=== PATIENT | male | born 1970 | race Caucasian/White ===

== ENCOUNTER 2018-10-12 00:52 | Emergency (ER) | payer OTHER ==
[~2018-10-12] VITALS: Ht 180.3 cm; Wt 127.9 kg
[~2018-10-12 00:52] MED LIST: ASPI-266 PO; METO-351 PO
[2018-10-12 01:23] LABS: BASOPHILS # (AUTO) 0.1 10^3/uL (0.0-0.1); BASOPHILS % (AUTO) 1 % (0-10); EOSINOPHILS # (AUTO) 0.4 10^3/uL (0.0-0.3); EOSINOPHILS % (AUTO) 4 % (0-10); HEMATOCRIT 44 % (40-54); HEMOGLOBIN 14.6 G/DL (13.3-17.7); LYMPHOCYTES # (AUTO) 2.3 X 10^3 (1.0-4.0); LYMPHOCYTES % (AUTO) 19 % (12-44); MEAN CORPUSCULAR HEMOGLOBIN 28 PG (25-34); MEAN CORPUSCULAR HGB CONC 33 G/DL (32-36); MEAN CORPUSCULAR VOLUME 85 FL (80-99); MEAN PLATELET VOLUME 9.8 FL (7.4-10.4); MONOCYTES # (AUTO) 1.1 X 10^3 (0.0-1.0); MONOCYTES % (AUTO) 9 % (0-12); NEUTROPHILS # (AUTO) 8.3 X 10^3 (1.8-7.8); NEUTROPHILS % (AUTO) 68 % (42-75); PLATELET COUNT 276 10^3/uL (130-400); RED CELL DISTRIBUTION WIDTH 14.4 % (10.0-14.5); WHITE BLOOD COUNT 12.2 10^3/uL (4.3-11.0)
[2018-10-12 01:43] LABS: ALANINE AMINOTRANSFERASE 23 U/L (0-55); ALBUMIN 4.1 GM/DL (3.2-4.5); ALKALINE PHOSPHATASE 84 U/L (40-136); BILIRUBIN,TOTAL 0.3 MG/DL (0.1-1.0); BUN/CREATININE RATIO 22; CALCIUM 9.6 MG/DL (8.5-10.1); CARBON DIOXIDE 26 MMOL/L (21-32); CHLORIDE 94 MMOL/L (98-107); CREATININE SERUM 1.43 MG/DL (0.60-1.30); GFR ESTIMATED 53; GLUCOSE 115 MG/DL (70-105); MAGNESIUM 1.9 MG/DL (1.8-2.4); POTASSIUM 3.6 MMOL/L (3.6-5.0); SODIUM 136 MMOL/L (135-145)
--- NOTE | 2018-10-12 01:56 | ED General ---
General Chief Complaint: General Problems/Pain Stated Complaint: DIZZINESS, MUSCLE CRAMPING Nursing Triage Note: Pt amb to room #6 w/o difficulty. a&ox4. C/o muscle cramping and dizziness. Reports intermittent symptoms that began 10/11/18. Reports cramping that feels like "charley horses," to legs, arms, and neck muscles. Reports to be taking 40mg lasix BID for swelling. +1 edema noted to bilat lower extremities. Nursing Sepsis Screen: No Definite Risk Source of Information: Patient Exam Limitations: No Limitations (SHEA JUNIOR MD) History of Present Illness Date Seen by Provider: Oct 12, 2018 Time Seen by Provider: 01:08 Initial Comments Here with report of muscle cramping that occurs throughout his body but mostly in the legs, arms and upper torso. Denies chest pain or breathing problems. Does admit to swelling of the lower extremities. States the swelling is been going on for some time and he did have an evaluation for that including ultrasound of his legs. That did not show any DVTs. He is currently on Lasix and spironolactone as well as potassium supplementation. Denies nausea or vomiting. Currently cramps are gone. He was concerned due to persistence and worsening. Timing/Duration: 12-24 Hours, Intermittent Severity: Moderate Modifying Factors: improves with Rest Associated Systoms: No Chest Pain, No Fever/Chills, No Nausea/Vomiting, No Shortness of Air, No Weakness (SHEA JUNIOR MD) Allergies and Home Medications Allergies Coded Allergies: No Known Drug Allergies (Unverified , 05/23/14) Home Medications Aspirin 81 Mg Tablet.dr, 81 MG PO DAILY Prescribed by: GUICHO HALEY on 05/24/14814 Metoprolol Succinate 25 Mg Tab, 25 MG PO DAILY Prescribed by: GUICHO HALEY on 05/24/14 0815 Patient Home Medication List Home Medication List Reviewed: Yes (SHEA JUNIOR MD) Review of Systems Review of Systems Constitutional: see HPI; No chills, No fever EENTM: no symptoms reported Respiratory: no symptoms reported Cardiovascular: no symptoms reported Gastrointestinal: No abdominal pain, No nausea, No vomiting Genitourinary: no symptoms reported Musculoskeletal: No back pain; muscle pain, muscle cramps; No neck pain Skin: change in color (bilateral lower extremity); No lesions Psychiatric/Neurological: No Symptoms Reported Hematologic/Lymphatic: No Symptoms Reported (SHEA JUNIOR MD) All Other Systems Reviewed Negative Unless Noted: Yes (SHEA JUNIOR MD) Past Okgorib-Uixvsk-Xwqhqh Hx Past Med/Social Hx: Reviewed Nursing Past Med/Soc Hx (SHEA JUNIOR MD) Patient Social History Alcohol Use: Denies Use Recreational Drug Use: No Smoking Status: Never a Smoker 2nd Hand Smoke Exposure: No Recent Foreign Travel: No Contact w/Someone Who Travel: No Recent Infectious Disease Expo: No Recent Hopitalizations: No (SHEA JUNIOR MD) Immunizations Up To Date Tetanus Booster (TDap): More than 5yrs (SHEA JUNIOR MD) Seasonal Allergies Seasonal Allergies: No (SHEA JUNIOR MD) Past Medical History Surgeries: Yes Appendectomy, Orthopedic Respiratory: No Cardiac: Yes Heart Attack, Hypertension Neurological: No Reproductive Disorders: No Sexually Transmitted Disease: No HIV/AIDS: No Genitourinary: No Gastrointestinal: Yes Gastroesophageal Reflux Musculoskeletal: No Endocrine: No Cancer: No Psychosocial: No Integumentary: No Blood Disorders: No Adverse Reaction/Blood Tranf: No (SHEA JUNIOR MD) Family Medical History Reviewed Nursing Family Hx (SHEA JUNIOR MD) Congenital heart disease 19 FATHER FH: cancer 19 FATHER 19 MOTHER No Pertinent Family Hx (SHEA JUNIOR MD) Physical Exam Vital Signs Vital Signs - First Documented 10/12/18 00:57 Temp 96.3 Pulse 80 Resp 17 B/P (MAP) 131/88 (102) Pulse Ox 96 O2 Delivery Room Air (MARCIA GUTIERRES MD) Vital Signs Capillary Refill : Less Than 3 Seconds (SHEA JUNIOR MD) Height, Weight, BMI Height: 5'11.00" Weight: 282lbs. 7.0oz. 127.406169wa; BMI Method:Stated General Appearance: No Apparent Distress, WD/WN HEENT: PERRL/EOMI, Pharynx Normal Neck: Non Tender, Supple Respiratory: Lungs Clear, Normal Breath Sounds Cardiovascular: Regular Rate, Rhythm, No Murmur Gastrointestinal: Non Tender, Soft Back: Normal Inspection, No CVA Tenderness, No Vertebral Tenderness Extremity: Normal Range of Motion, Non Tender, Pedal Edema (right greater than left that he states is normal 1-2+ up to the knee bilateral), Swelling Neurologic/Psychiatric: Alert, Oriented x3 Skin: Normal Color, Warm/Dry (SHEA JUNIOR MD) Progress/Results/Core Measures Suspected Sepsis Recent Fever Within 48 Hours: No Infection Criteria Present: None New/Unexplained Altered Menta: No Sepsis Screen: No Definite Risk SIRS Temperature:96.3 Pulse: 80 Respiratory Rate: 17 Laboratory Tests 10/12/18 01:15: White Blood Count 12.2H Blood Pressure 131 /88 Mean: 102 Laboratory Tests 10/12/18 01:15: Creatinine 1.43H, Platelet Count 276, Total Bilirubin 0.3 (SHEA JUNIOR MD) Results/Orders Lab Results Laboratory Tests Test 10/12/18 01:15 Range/Units White Blood Count 12.2 H 4.3-11.0 10^3/uL Red Blood Count 5.18 4.35-5.85 10^6/uL Hemoglobin 14.6 13.3-17.7 G/DL Hematocrit 44 40-54 % Mean Corpuscular Volume 85 80-99 FL Mean Corpuscular Hemoglobin 28 25-34 PG Mean Corpuscular Hemoglobin Concent 33 32-36 G/DL Red Cell Distribution Width 14.4 10.0-14.5 % Platelet Count 276 130-400 10^3/uL Mean Platelet Volume 9.8 7.4-10.4 FL Neutrophils (%) (Auto) 68 42-75 % Lymphocytes (%) (Auto) 19 12-44 % Monocytes (%) (Auto) 9 0-12 % Eosinophils (%) (Auto) 4 0-10 % Basophils (%) (Auto) 1 0-10 % Neutrophils # (Auto) 8.3 H 1.8-7.8 X 10^3 Lymphocytes # (Auto) 2.3 1.0-4.0 X 10^3 Monocytes # (Auto) 1.1 H 0.0-1.0 X 10^3 Eosinophils # (Auto) 0.4 H 0.0-0.3 10^3/uL Basophils # (Auto) 0.1 0.0-0.1 10^3/uL D-Dimer 1.20 H 0.00-0.49 UG/ML Sodium Level 136 135-145 MMOL/L Potassium Level 3.6 3.6-5.0 MMOL/L Chloride Level 94 L 98-107 MMOL/L Carbon Dioxide Level 26 21-32 MMOL/L Anion Gap 16 H 5-14 MMOL/L Blood Urea Nitrogen 32 H 7-18 MG/DL Creatinine 1.43 H 0.60-1.30 MG/DL Estimat Glomerular Filtration Rate 53 BUN/Creatinine Ratio 22 Glucose Level 115 H 70-105 MG/DL Calcium Level 9.6 8.5-10.1 MG/DL Corrected Calcium 9.5 8.5-10.1 MG/DL Magnesium Level 1.9 1.8-2.4 MG/DL Total Bilirubin 0.3 0.1-1.0 MG/DL Aspartate Amino Transf (AST/SGOT) 21 5-34 U/L Alanine Aminotransferase (ALT/SGPT) 23 0-55 U/L Alkaline Phosphatase 84 40-136 U/L Troponin I < 0.028 <0.028 NG/ML B-Type Natriuretic Peptide 10.6 <100.0 PG/ML Total Protein 9.0 H 6.4-8.2 GM/DL Albumin 4.1 3.2-4.5 GM/DL Thyroid Stimulating Hormone (TSH) 2.98 0.35-4.94 UIU/ML (MARCIA GUTIERRES MD) Medications Given in ED Current Medications Medications Dose Ordered Sig/Karen Route Start Time Stop Time Status Last Admin Dose Admin Sodium Chloride 1,000 ml @ 0 mls/hr Q0M ONCE IV 10/12/18 02:26 10/12/18 02:27 DC 10/12/18 03:10 0 MLS/HR (MARCIA GUTIERRES MD) Vital Signs/I&O 10/12/18 00:57 Temp 96.3 Pulse 80 Resp 17 B/P (MAP) 131/88 (102) Pulse Ox 96 O2 Delivery Room Air (MARCIA GUTIERRES MD) Vital Signs/I&O Capillary Refill : Less Than 3 Seconds (SHEA JUNIOR MD) Blood Pressure Mean: 102 Progress Note : Progress Note Seen and evaluated. IV, labs, chest x-ray and EKG ordered. Monitor patient. 0220: CT angiogram chest, abdomen and pelvis ordered due to elevated d-dimer. He has negative workup on his legs and he states that his primary care provider was going to do a CT scan of his abdomen and pelvis to try to determine why his legs are swollen. We will evaluate via angiogram. Normal saline 1 L bolus ordered for after. Monitor patient. 0500: CT complete and results noted. No significant pathology within the chest, abdomen or pelvis. D-dimer is elevated. He does have swelling to bilateral legs with right greater than left. He does state that he had negative ultrasound a month ago but I do believe that he needs to have ultrasound. He has elected to await ultrasound arrives this morning so we will monitor him in the emergency department. He is urinating well. He did receive 1 L normal saline that is complete. I did discuss his renal dysfunction. He does need close follow-up with his doctor which she will do after results are com plete. Care transferred to Dr. Gutierres pending ultrasound. (SHEA JUNIOR MD) Progress Note : Time: 08:49 Progress Note I assumed care from Dr. Junior at 6 a.m. The patient's ultrasound of his lower extremity was unremarkable. (MARCIA GUTIERRES MD) ECG Initial ECG Impression Date: Oct 12, 2018 Initial ECG Impression Time: 01:16 Initial ECG Rate: 62 Initial ECG Rhythm: Normal Sinus Initial ECG Impression: Normal Initial ECG Comparisson: Changed Comment Sinus rhythm with normal axis. No evidence of ST elevation WA. Change from previous which did show some mild ST elevation. Interpreted by me. Previous EKG on 05/24/14. (SHEA JUNIOR MD) Diagnostic Imaging Diagonstic Imaging: Xray Plain Films/CT/US/NM/MRI: chest Diagonstic Imaging: CT Plain Films/CT/US/NM/MRI: chest, abdomen, pelvis Comments Normal chest CTA. No pulmonary embolism. No acute findings and the arterial system of the abdomen and pelvis. No other significant findings on CT scan noted. NAME: JENNIFER LUNDBERG [facility] REC#: [id number] PT STATUS: REG ER : 1970 PHYSICIAN: SHEA JUNIOR MD ADMIT DATE: 10/12/18/ER Draft Date of Exam:10/12/18 CT ANGIO CHST/ABD/PELV W PROCEDURE: CT angiography of the chest with contrast and CT abdomen and pelvis with contrast. TECHNIQUE: Multiple contiguous axial images were obtained through the chest, abdomen and pelvis after administration of intravenous contrast. Reconstructed MIP CT angiography acquisitions of the aorta were then performed. Auto Exposure Controls were utilized during the CT exam to meet ALARA standards for radiation dose reduction. INDICATION: Dizziness and lower extremity swelling. CTA chest: There is good opacification of pulmonary arteries with no intraluminal filling defect identified. Thoracic aorta is also unremarkable in appearance. Lungs are clear. There is borderline cardiomegaly. No significant pleural or pericardial fluid is identified. There is no evidence of pathologic adenopathy in the thorax. There is mild thoracic spondylosis. IMPRESSION: No CTA evidence of pulmonary embolism or other acute abnormality the thorax. CT abdomen and pelvis: There is mild low-density throughout the liver without focal hepatic or splenic lesion. No pancreatic or adrenal gland abnormality is identified and the gallbladder has a normal appearance. There may be punctate calcification in the right kidney. Otherwise kidneys are unremarkable with normal bilateral contrast excretion. There is abundance of mesenteric fat without evidence of bowel obstruction or pathologic adenopathy in the abdomen or pelvis. Partially opacified urinary bladder is unremarkable. There is moderate osteoarthritis involving the hip joints with [id number] lumbar spondylosis. IMPRESSION: No acute abnormality is seen within the abdomen or pelvis. Dictated on workstation # [id number] Dict: 10/12/18 0552 Trans: 10/12/18 0601 [id number] Interpreted by: MIO ROLON MD Electronically signed by: Reviewed: [facility], Reviewed by Me (SHEA JUNIOR MD) Departure Impression Primary Impression: Muscle cramps Disposition: 01 HOME, SELF-CARE Condition: Improved Departure-Patient Inst. Decision time for Depature: 08:53 (MARCIA GUTIERRES MD) Referrals: SEUN RÍOS MD (PCP) Primary Care Physician NO,LOCAL PHYSICIAN (Family) Primary Care Physician Patient Instructions: Nocturnal (Nighttime) Leg Cramps Add. Discharge Instructions: Follow-up with your doctor today. Magnesium orally for muscle cramps. Elevate legs and continue with Lasix. Return if any problems or questions. All discharge instructions reviewed with patient and/or family. Voiced understanding. Copy Copies To 1: SEUN RÍOS MD, TIMOTHY D MD Oct 12, 2018 01:56 MARCIA GUTIERRES MD Oct 12, 2018 08:51
[2018-10-12] MEDS ORDERED: NS IV 1000 ML 1,000 ML IV ONE (02:26)
--- NOTE | 2018-10-12 05:00 | NUR ---
Pt resting comfortably. Respirations even and non labored. Voices no complaints or concerns @ this time. Will continue to monitor.
--- NOTE | 2018-10-12 06:01 | Diagnostic Imaging Report ---
PROCEDURE: CT angiography of the chest with contrast and CT abdomen and pelvis with contrast. TECHNIQUE: Multiple contiguous axial images were obtained through the chest, abdomen and pelvis after administration of intravenous contrast. Reconstructed MIP CT angiography acquisitions of the aorta were then performed. Auto Exposure Controls were utilized during the CT exam to meet ALARA standards for radiation dose reduction. INDICATION: Dizziness and lower extremity swelling. CTA chest: There is good opacification of pulmonary arteries with no intraluminal filling defect identified. Thoracic aorta is also unremarkable in appearance. Lungs are clear. There is borderline cardiomegaly. No significant pleural or pericardial fluid is identified. There is no evidence of pathologic adenopathy in the thorax. There is mild thoracic spondylosis. IMPRESSION: No CTA evidence of pulmonary embolism or other acute abnormality the thorax. CT abdomen and pelvis: There is mild low-density throughout the liver without focal hepatic or splenic lesion. No pancreatic or adrenal gland abnormality is identified and the gallbladder has a normal appearance. There may be punctate calcification in the right kidney. Otherwise kidneys are unremarkable with normal bilateral contrast excretion. There is abundance of mesenteric fat without evidence of bowel obstruction or pathologic adenopathy in the abdomen or pelvis. Partially opacified urinary bladder is unremarkable. 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 IMPRESSION: No acute abnormality is seen within the abdomen or pelvis. Dictated by: Dictated on workstation # [id number]
--- NOTE | 2018-10-12 07:00 | NUR ---
Report given to COSTA Leyva to assume care of pt @ this time.
--- NOTE | 2018-10-12 07:14 | Diagnostic Imaging Report ---
INDICATION: Dizziness. PA and lateral views of the chest are obtained. No previous study is available at this time for comparison. FINDINGS: Overall heart size is within normal limits. Pulmonary vascularity is at the upper limits of normal. There is no evidence of overt edema. No pleural fluid is identified. There is mild diffuse thoracic spondylosis. IMPRESSION: Borderline pulmonary venous congestion without overt edema or other acute abnormality. Dictated by: Dictated on workstation # [id number]
--- NOTE | 2018-10-12 08:44 | Diagnostic Imaging Report ---
PROCEDURE: US Venous Lower Ext Su[place]. TECHNIQUE: Multiple real-time grayscale images were obtained over the lower extremities in various projections, bilaterally. Additional duplex Doppler and color Doppler images were also obtained. Date: October 12, 2018. Indication: 48-year-old male, bilateral lower extremity swelling. Evaluation for deep venous thrombosis. Comparison: None. Findings: The right and left common femoral veins, superficial femoral veins, popliteal veins, posterior tibial veins are patent. Impression: 1. Negative for right or left lower extremity deep venous thrombosis. Dictated by: Dictated on workstation # [id number]
[2018-10-12 09:21] VITALS: BP 115/79
== END 2018-10-12 09:21 | disposition home or self-care (01) ==
LOC: EDUNIT# 00:52 → ER 00:54
DX: R25.2 Cramp and spasm (principal); I10 Essential (primary) hypertension; I25.2 Old myocardial infarction; K21.9 Gastro-esophageal reflux disease without esophagitis; Z79.82 Long term (current) use of aspirin; Z90.49 Acquired absence of other specified parts of digestive tract; Z82.49 Family history of ischemic heart disease and other diseases of the circulatory system
CPT/HCPCS: 36415; 71046; 71275; 74174; 80053; 83735; 83880; 84443; 84484; 85025; 85379; 93005; 93970; 96360; 96361

== ENCOUNTER → 2019-04-19 | Outpatient (CLI) | payer BC, OTHER | LOC: CARD 15:02 | PROVIDERS: ATTEND Internal Medicine Cardiovascular Disease | DX: I10 Essential (primary) hypertension (principal); I25.41 Coronary artery aneurysm; R06.09 Other forms of dyspnea; E66.01 Morbid (severe) obesity due to excess calories ==

== ENCOUNTER → 2020-03-29 | Outpatient (CLI) | payer OTHER ==
--- NOTE | 2020-03-29 11:44 | Diagnostic Imaging Report ---
INDICATION: Knee pain. COMPARISON: None available. TECHNIQUE: Two radiographs of the left knee dated 03/02/2020. FINDINGS: No acute fracture or dislocation. No destructive osseous process. Moderate medial joint space narrowing and mild lateral joint space narrowing. Mild tricompartmental osteophytosis. Superior and inferior patellar enthesophytes. No joint effusion. No suspicious radiopaque foreign body. IMPRESSION: No acute osseous abnormality with udur-rl-crjywgnc degenerative changes, greatest within the medial compartment. Dictated by: Dictated on workstation # [id number]
--- NOTE | 2020-03-29 11:53 | Diagnostic Imaging Report ---
INDICATION: Lower back pain. COMPARISON: None available. TECHNIQUE: Three radiographs of the lumbar spine are obtained dated March 29, 2020. FINDINGS: Five lumbar-type vertebral bodies are present. Alignment of the lumbar spine is well maintained. Minimal chronic-appearing anterior wedging of L1 is present. No evidence of a recent vertebral body compression deformity. Multilevel small anterior osteophytes are present. This is associated with a few thin anterior syndesmophytes. Advanced facet joint degenerative changes are present, particularly within the lower lumbar spine at L4/L5 and L5/S1. Minimal partial ankylosis of the bilateral sacroiliac joints is suggested. No abnormal widening of the sacroiliac joints. The pubic symphysis is intact. Significant degenerative changes of the bilateral hips, right greater than left. Mild disc space height loss at L5/S1. No severe disc space height loss. IMPRESSION: No acute fracture with scattered osseous degenerative changes, greatest within the lower lumbar spine where there is advanced facet joint degenerative changes. Suggestion of partial ankylosis of the bilateral sacroiliac joints. Given minimal thin anterior syndesmophytes within the lumbar spine, findings may relate to ankylosing spondylitis. Recommend clinical correlation and correlation with laboratory values. Dictated by: Dictated on workstation # [id number]
== END ==
LOC: RAD 09:16
PROVIDERS: ATTEND Family Medicine
DX: Z02.71 Encounter for disability determination (principal); M47.816 Spondylosis without myelopathy or radiculopathy, lumbar region; M17.12 Unilateral primary osteoarthritis, left knee
CPT/HCPCS: 72100; 73560

== ENCOUNTER → 2021-06-04 | Outpatient (CLI) | payer OTHER ==
[~2021-06-04] MED LIST changes: +LISI40TA9 PO; +NAPR-1070 PO; +POTA10TA37 PO
--- NOTE | 2021-06-04 16:32 | Diagnostic Imaging Report ---
INDICATION: Left nephrolithiasis. EXAMINATION: KUB at 3:21 PM. FINDINGS: The lung bases are clear. The bowel gas pattern is normal. There are no pathologic masses or calcifications. IMPRESSION: Unremarkable abdomen. Dictated by: Dictated on workstation # [id number]
== END ==
LOC: RAD 14:48
PROVIDERS: ATTEND Urology
DX: N20.0 Calculus of kidney (principal)
CPT/HCPCS: 74018

== ENCOUNTER → 2021-06-04 | Outpatient (CLI) | payer OTHER | END | disposition home or self-care (01) | LOC: PREOP 16:28 | PROVIDERS: ATTEND Urology | DX: Z01.818 Encounter for other preprocedural examination (principal) ==

== ENCOUNTER 2021-06-05 08:40 | Day surgery (SDC) | payer OTHER ==
[~2021-06-05] VITALS: Ht 177.8 cm; Wt 127.2 kg
[2021-06-05] VITALS (10 sets, daily range): BP systolic 123–155; BP diastolic 70–94
[~2021-06-05 08:40] MED LIST changes: -LISI40TA9 PO; -NAPR-1070 PO; -POTA10TA37 PO
[2021-06-05] MEDS ORDERED: cefTRIAXone 1 GM PRE-MIX 50 ML IV ONE (09:00)
--- NOTE | 2021-06-05 09:11 | Diagnostic Imaging Report ---
INDICATION: Pre ESWL. COMPARISON: Radiograph 06/04/2021. A 3.3 mm diameter right pelvic calcification is unchanged. This may be within the lumen of the distal right ureter proximal to the ureteral orifice. The midline urinary bladder nondisplaced. There are degenerative changes to the spine and pelvis. No other potential opaque urinary tract calculi. Some ankylosis across the SI joints chronic. IMPRESSION: 3.3 mm right hemipelvic calcification unchanged, indeterminate phlebolith versus distal ureteral stone. Dictated by: Dictated on workstation # [id number]
--- NOTE | 2021-06-05 09:37 | Progress Note-Pre Operative ---
Pre-Operative Progress Note H&P Reviewed The H&P was reviewed, patient examined and no changes noted. Date Seen by Provider: Jun 05, 2021 Time Seen by Provider: 09:37 Date H&P Reviewed: Jun 05, 2021 Time H&P Reviewed: 09:37 Pre-Operative Diagnosis: LT RENAL STONE KATIE CLIFTON MD Jun 05, 2021 09:37
--- NOTE | 2021-06-05 11:47 | Progress Note-Post Operative ---
Post-Operative Progess Note Surgeon (s)/Financial Coordinator (s) Surgeon KATIE CLIFTON MD Financial Coordinator: NONE Pre-Operative Diagnosis LT RENAL STONE Post-Operative Diagnosis SAME Procedure & Operative Findings Date of Procedure 06/05/21 Procedure Performed/Findings LT DRY RUN ESWL Anesthesia Type GENERAL Estimated Blood Loss Estimated blood loss (mL): NONE Specimens/Packing Specimens Removed NONE Packing: NONE KATIE CLIFTON MD Jun 05, 2021 11:47
--- NOTE | 2021-06-05 11:50 | Discharge Inst-Urology ---
Discharge Inst-Urology Reconcile Patient Problems Problems Reviewed?: Yes Final Diagnosis LT RENAL STONE Patient Instructions/Follow Up Plan/Assessment/Instructions Please make appointment to been seen in office in 1 week. Increase oral fluids for 48 hours and then as needed. Diet and Activity as tolerated. If questions or concerns contact your physician Or seek help at emergency department. KATIE CLIFTON MD Jun 05, 2021 11:50
[2021-06-05] MEDS ORDERED: POTA10TA37 PO (12:10)
[2021-06-05] MEDS ORDERED: NAPR-1070 PO (12:10)
[2021-06-05] MEDS ORDERED: LISI40TA9 PO (12:10)
[2021-06-05] MEDS ORDERED: proPOfol 200 MG/20 ML (DIPRIVAN) VIAL IV ONE (13:17)
[2021-06-05] MEDS ORDERED: LIDOCAINE PF 2% 5 ML (XYLOCAINE) VIAL ONE (13:17)
[2021-06-05] MEDS ORDERED: fentaNYL INJ 100 MCG/2 ML AMP ONE (13:17)
[2021-06-05] MEDS ORDERED: SEVOFLURANE (ULTANE) 15 ML INHAL SOLN ONE (13:17)
[2021-06-05] MEDS ORDERED: ONDANSETRON 4 MG/2 ML (SDV) Z0FRAN ONE (13:17)
[2021-06-05] MEDS ORDERED: MIDAZOLAM 2 MG/2 ML (VERSED) VIAL ONE (13:18)
[2021-06-05] MEDS ORDERED: FUROSEMIDE 40 MG/4 ML INJ (LASIX) ONE (13:20)
[2021-06-05] MEDS ORDERED: KETOROLAC 30 MG/ML VIAL ONE (13:21)
[2021-06-05] MEDS ORDERED: ONDANSETRON 4 MG/2 ML (SDV) Z0FRAN IVP PRN (13:45)
[2021-06-05] MEDS ORDERED: HYDROmorphone 2 MG/ML VIAL (DILAUDID) IV ONE (13:45)
--- NOTE | 2021-06-05 14:01 | Anesthesia-General Post-Op ---
General Patient Condition Mental Status/LOC: Same as Preop Cardiovascular: Satisfactory Nausea/Vomiting: Absent Respiratory: Satisfactory Pain: Controlled Complications: Absent Post Op Complications Complications None Follow Up Care/Instructions Patient Instructions None needed. Anesthesia/Patient Condition Patient Condition Patient is doing well, no complaints, stable vital signs, no apparent adverse anesthesia problems. No complications reported per nursing. [place] [facility] [place]: Yes RENEE BRUMFIELD CRNA Jun 05, 2021 14:01
--- NOTE | 2021-06-05 19:08 | OPERATIVE REPORT ---
DATE OF SERVICE: 06/05/2021 PREOPERATIVE DIAGNOSIS: Left renal stone. POSTOPERATIVE DIAGNOSIS: Left renal stone. OPERATION PERFORMED: Left dry run ESWL. SURGEON: Lee Clifton MD ANESTHESIA: General. COMPLICATIONS: None. DESCRIPTION OF PROCEDURE: Under satisfactory general anesthesia, the patient in supine position on the ESWL table, we tried to identify the left renal stone, it was different technique of using the C-arm fluoroscopy and escaping and the bowels shadowing, we were unable to do so, most probably a stone being uric acid and was not seen by KUBs. So, we discontinued further attempt. I did not order to do it under retrograde because of the size of the stone and it fragments coming down the ureter that would not be able to be visualized by x-rays either and I thought that the best way to address the problem was the percutaneous nephrolithotripsy or a retrograde flexible uretero, pyelolithotripsy, which was offered to the patient and his preoperatively, but he wanted to try dry run first and see if the stone can be seen and broken up that way. The patient tolerated the procedure and anesthesia well and was sent to recovery room in stable condition. Job ID: [id number] DocumentID: [id number] Dictated Date: 06/05/2021 13:40:36 Fx Artist Date: 06/05/2021 19:07:40 Dictated By: LEE CLIFTON MD
== END 2021-06-05 15:30 | disposition home or self-care (01) ==
LOC: SDC 08:40
PROVIDERS: ATTEND Urology
DX: N20.0 Calculus of kidney (principal); E66.01 Morbid (severe) obesity due to excess calories; Z68.41 Body mass index [BMI] 40.0-44.9, adult
CPT/HCPCS: 74018; 87081

== ENCOUNTER 2022-03-09 12:55 | Emergency (ER) | payer OTHER ==
[~2022-03-09] VITALS: Ht 182 cm; Wt 127.2 kg
[~2022-03-09 12:55] MED LIST changes: +LISI40TA9 PO; +NAPR-1070 PO; +POTA-177 PO
--- NOTE | 2022-03-09 13:30 | ED Abdominal Pain ---
General Chief Complaint: Abdominal/GI Problems Stated Complaint: KIDNEY PAIN SURGERY ON 01/10 Source of Information: Patient Exam Limitations: No Limitations History of Present Illness Date Seen by Provider: Mar 09, 2022 Time Seen by Provider: 13:25 Initial Comments Patient is a 52-year-old male with a history of uric acid kidney stones who presents to the emergency room with a chief complaint of right flank pain. Patient was seen at [facility] approximately 5 days ago, had CT scan and x- ray done. Was sent home with hydrocodone. He states he took 1 at about 11 which did not help. He has had increasing intensity of the pain over the course of the last 12 to 18 hours. He is nauseous. No fevers or chills. The pain radiates from the back into the right anterior upper abdomen. No vomiting. Last bowel movement was this morning. He was able to urinate prior to arrival. He has had previous surgical removal of the stones at the last time was in December on the left side. He tells me that he has a 7 mm stone currently on the right. He is awaiting a callback from the urologist at after [facility] clouded images to last week. Previous appendectomy. All other review of systems reviewed and negative except as stated Timing/Duration: 12 Hours, 1 Week Severity/Quality: Severe, Sharp Location: RUQ, Flank Activities at Onset: None Associated Symptoms: Nausea/Vomiting Allergies and Home Medications Allergies Coded Allergies: No Known Drug Allergies (Unverified , 05/23/14) Patient Home Medication List Home Medication List Reviewed: Yes Lisinopril (Lisinopril) 40 Mg Tablet, 40 MG PO DAILY, (Reported) Entered as Reported by: CLEMENTE CARLOS on 06/05/21 1210 Metoprolol Succinate (Toprol Xl) 25 Mg Tab, 25 MG PO DAILY Prescribed by: GUICHO HALEY on 05/24/14 0815 Naproxen Sodium (Anaprox Ds) 550 Mg Tablet, 500 MG PO DAILY, (Reported) Entered as Reported by: CLEMENTE CARLOS on 06/05/21 1210 Oxycodone HCl/Acetaminophen (Percocet 5-325 mg Tablet) 1 Each Tablet, 1 TAB PO Q6H Prescribed by: LA SLATER on 03/09/22 1459 Potassium Chloride (Potassium Chloride) 10 Meq Tab.er.prt, 10 MEQ PO DAILY, (Reported) Entered as Reported by: CLEMENTE CARLOS on 06/05/21 1210 Review of Systems Review of Systems Constitutional: see HPI EENTM: No Symptoms Reported Respiratory: No Symptoms Reported Cardiovascular: No Symptoms Reported Gastrointestinal: Abdominal Pain, Nausea Genitourinary: Pain (no testicular pain) Musculoskeletal: no symptoms reported Skin: no symptoms reported All Other Systems Reviewed Negative Unless Noted: Yes Past Apvhtne-Tnwhib-Lnzzcz Hx Immunizations Up To Date Tetanus Booster (TDap): More than 5yrs First/Initial COVID19 Vaccinat: 09/26/20 Second COVID19 Vaccination Patrick: 10/24/20 Seasonal Allergies Seasonal Allergies: No Past Medical History Surgeries: Yes Appendectomy, Orthopedic Respiratory: No Currently Using CPAP: No Currently Using BIPAP: No Cardiac: Yes Heart Attack, Hypertension Neurological: No Reproductive Disorders: No Sexually Transmitted Disease: No HIV/AIDS: No Genitourinary: No Gastrointestinal: Yes Gastroesophageal Reflux Musculoskeletal: No Endocrine: No Cancer: No Psychosocial: No Integumentary: No Blood Disorders: No Adverse Reaction/Blood Tranf: No Family Medical History Congenital heart disease 19 FATHER FH: cancer 19 FATHER 19 MOTHER No Pertinent Family Hx Physical Exam Vital Signs Vital Signs - First Documented 03/09/22 13:23 Temp 36.6 Pulse 73 Resp 22 B/P (MAP) 156/98 (117) Pulse Ox 98 O2 Delivery Room Air Capillary Refill : Height/Weight/BMI Height: 5'11.00" Weight: 282lbs. 7.0oz. 127.791502cg; 40.23 BMI Method:Stated General Appearance: WD/WN, moderate distress HEENT: PERRL/EOMI Neck: full range of motion Respiratory: lungs clear, normal breath sounds, no respiratory distress, no accessory muscle use Cardiovascular: regular rate, rhythm Gastrointestinal: soft, tenderness (mild tenderness right flank) Progress/Results/Core Measures Results/Orders Lab Results Laboratory Tests Test 03/09/22 13:30 03/09/22 13:50 Range/Units Sodium Level 138 135-145 MMOL/L Potassium Level 3.4 L 3.6-5.0 MMOL/L Chloride Level 103 98-107 MMOL/L Carbon Dioxide Level 22 21-32 MMOL/L Anion Gap 13 5-14 MMOL/L Blood Urea Nitrogen 13 7-18 MG/DL Creatinine 1.01 0.60-1.30 MG/DL Estimat Glomerular Filtration Rate 90 BUN/Creatinine Ratio 13 Glucose Level 143 H 70-105 MG/DL Calcium Level 8.9 8.5-10.1 MG/DL Urine Color YELLOW Urine Clarity CLEAR Urine pH 5.0 5-9 Urine Specific [place] >=1.030 1.016-1.022 Urine Protein 1+ H NEGATIVE Urine Glucose (UA) NEGATIVE NEGATIVE Urine Ketones TRACE H NEGATIVE Urine Nitrite NEGATIVE NEGATIVE Urine Bilirubin NEGATIVE NEGATIVE Urine Urobilinogen 0.2 < = 1.0 MG/DL Urine Leukocyte Esterase NEGATIVE NEGATIVE Urine RBC (Auto) 3+ H NEGATIVE Urine RBC 10-25 H /HPF Urine WBC NONE /HPF Urine Crystals PRESENT H /LPF Urine Uric Acid Crystals MODERATE H /LPF Urine Bacteria TRACE /HPF Urine Casts NONE /LPF Urine Mucus SMALL H /LPF Urine Culture Indicated NO My Orders Orders - LA SLATER MD Ed Iv/Invasive Line Start (03/09/22 13:32) Basic Metabolic Panel (03/09/22 13:32) Ua Culture If Indicated (03/09/22 13:32) Ns Iv 1000 Ml (Sodium Chloride 0.9%) (03/09/22 13:32) Ketorolac Injection (Toradol Injection) (03/09/22 13:45) Morphine Injection (Morphine Injection (03/09/22 13:32) Ondansetron Injection (Zofran Injectio (03/09/22 13:45) Abdomen/Kub 1view (03/09/22 14:30) Morphine Injection (Morphine Injection (03/09/22 14:30) Medications Given in ED Current Medications Medications Dose Ordered Sig/Karen Route Start Time Stop Time Status Last Admin Dose Admin Ketorolac Tromethamine 15 mg ONCE ONCE IVP 03/09/22 13:45 03/09/22 13:46 DC 03/09/22 13:42 15 MG Ondansetron HCl 8 mg ONCE ONCE IVP 03/09/22 13:45 03/09/22 13:46 DC 03/09/22 13:42 8 MG Vital Signs/I&O 03/09/22 03/09/22 03/09/22 03/09/22 13:23 13:42 13:42 14:55 Temp 36.6 36.6 36.6 36.6 Pulse 73 Resp 22 B/P (MAP) 156/98 (117) Pulse Ox 98 O2 Delivery Room Air Progress Progress Note #1: Time: 14:31 Progress Note Patient re-examined. Pain down to a "4". No longer nauseated. Furhter clarification - he states the [facility] doctor was actually able to see the stones in the right kidney. Will go ahead and do a KUB and cloud that to [facility]. I do not see utility in repeating a CT of the abdomen and pelvis as he had a CT 4/5 days ago. Progress Note #2: Time: 15:15 Progress Note Patient is ready for discharge. Thinks his pain is controlled enough Diagnostic Imaging Diagonstic Imaging: Xray Comments NAME: JENNIFER LUNDBERG MED REC#: [id number] PT STATUS: REG ER : 1970 PHYSICIAN: LA SLATER MD ADMIT DATE: 03/09/22/ER Draft Date of Exam:03/09/22 ABDOMEN/KUB 1VIEW INDICATION: Right flank pain. History of kidney stones. FINDINGS: There is no convincing evidence of a radiodense stone projecting over the expected location of the right renal shadow or course of the ureter. There is a small rounded calcification in the right pelvis that was also present on the prior examination compatible with a phlebolith. Assessment of the kidneys is limited by significant degree of colonic gas projecting over the right renal shadow. The lung bases appear clear. IMPRESSION: There is no plain film evidence of a calcification projecting over the expected location of the renal shadow or over the expected course of the ureters. The extensive gas within the colon projecting on the renal bed does however limited plain film assessment. Dictated on workstation # [id number] Dict: 03/09/22 1449 Trans: 03/09/22 1452 CV [id number] Interpreted by: JENNIFER RODRIGUEZ MD Electronically signed by: Departure Impression Primary Impression: Renal colic on right side Disposition: 01 HOME, SELF-CARE Condition: Improved Departure-Patient Inst. Decision time for Depature: 14:56 Referrals: LANCE PARR MD (PCP) Primary Care Physician Patient Instructions: Renal Colic (DC) Add. Discharge Instructions: Drink plenty of fluids to stay well-hydrated. Continue your Flomax nightly to help increase urinary flow Change from hydrocodone to percocet 5/325. You can take 1 of these with a Tylenol or ibuprofen every 6 hours as needed for pain. Please follow-up with [facility] on Friday. Return to the emergency room for any worsening pain, especially associated with fever, vomiting or other emergent concerning symptoms. Scripts Ondansetron (Ondansetron Odt) 8 Mg Tab.rapdis 8 MG SL Q8H PRN for NAUSEA/VOMITING, #20 TAB Prov: LA SLATER MD 03/09/22 Oxycodone HCl/Acetaminophen (Percocet 5-325 mg Tablet) 1 Each Tablet 1 TAB PO Q6H for PAIN-MODERATE MDD 6 TABS, #15 TAB Prov: LA SLATER MD 03/09/22 LA SLATER MD Mar 09, 2022 13:30
[2022-03-09] MEDS ORDERED: morphine INJ 10 MG/ML 1ML (SYR OR VIAL) IVP STA ×2 (13:32→14:30)
[2022-03-09] MEDS ORDERED: NS IV 1000 ML 1,000 ML IV STA (13:32)
[2022-03-09] MEDS ORDERED: KETOROLAC 30 MG/ML VIAL IVP ONE (13:45)
[2022-03-09] MEDS ORDERED: ONDANSETRON 4 MG/2 ML (SDV) Z0FRAN IVP ONE (13:45)
[2022-03-09 13:56] LABS: BILIRUBIN,URINE NEGATIVE (NEGATIVE); CLARITY,URINE CLEAR; COLOR,URINE YELLOW; GLUCOSE, URINE (UA) NEGATIVE (NEGATIVE); KETONES,URINE TRACE (NEGATIVE); LEUKOCYTE ESTERASE ,URINE NEGATIVE (NEGATIVE); NITRITE,URINE NEGATIVE (NEGATIVE); PROTEIN,URINE 1+ (NEGATIVE)
[2022-03-09 13:56] LABS: CALCIUM 8.9 MG/DL (8.5-10.1); CREATININE SERUM 1.01 MG/DL (0.60-1.30); POTASSIUM 3.4 MMOL/L (3.6-5.0)
[2022-03-09 14:07] LABS: BACTERIA,URINE TRACE /HPF; URIC ACID CRYSTALS,URINE MODERATE /LPF
--- NOTE | 2022-03-09 14:52 | Diagnostic Imaging Report ---
INDICATION: Right flank pain. History of kidney stones. FINDINGS: There is no convincing evidence of a radiodense stone projecting over the expected location of the right renal shadow or course of the ureter. There is a small rounded calcification in the right pelvis that was also present on the prior examination compatible with a phlebolith. Assessment of the kidneys is limited by significant degree of colonic gas projecting over the right renal shadow. The lung bases appear clear. IMPRESSION: There is no plain film evidence of a calcification projecting over the expected location of the renal shadow or over the expected course of the ureters. The extensive gas within the colon projecting on the renal bed does however limited plain film assessment. Dictated by: Dictated on workstation # [id number]
[2022-03-09] MEDS ORDERED: OXYC1TAB87 PO (14:58)
[2022-03-09] MEDS ORDERED: ONDA8TAB13 SL (15:16)
[2022-03-09 15:50] VITALS: BP 133/88
== END 2022-03-09 15:50 | disposition home or self-care (01) ==
LOC: EDUNIT# 12:55 → ER 12:57
DX: N23 Unspecified renal colic (principal); Z87.442 Personal history of urinary calculi
CPT/HCPCS: 36415; 74018; 80048; 81000

== ENCOUNTER 2022-05-05 08:20 | Inpatient (IN) | payer OTHER ==
[~2022-05-05] VITALS: Ht 177.8 cm; Wt 120.2 kg
[~2022-05-05 08:20] MED LIST changes: +ONDA8TAB13 SL; +OXYC1TAB87 PO
--- OUTSIDE RECORDS SUMMARY | 2022-05-05 08:31 | XMS REPORT | Clinical Summary ---
Author Author [facility] Organization [facility] Address Unknown Phone Unavailable Care Team Providers Care Yacht Master Name Role Phone Yang Ram MD PCP Unavailable Source Comments Some departments are not documenting in the electronic medical record. If you d o not see the information that you expected, contact Release of Information in [facility] [employer] Information Management department at [phone] for further assistan ce in locating additional records.[facility] Allergies No known active allergies Medications End Date Status Medication Sig Dispensed Refills Start Date Active lisinopril (ZESTRIL) 40 Take one 0 mg tablet tablet by 9 mouth daily. Active potassium chloride Take 10 mEq 0 (KLOR-CON 10) 10 mEq by mouth 0 tablet daily. Active torsemide (DEMADEX) 20 mg Take 1 tablet 0 02/28 tablet by mouth 0 daily. Active acetaminophen Take two 50 tablet 0 (ACETAMINOPHEN EXTRA tablets by 2 STRENGTH) 500 mg tablet mouth every 6 hours as needed for Pain. Max of 4,000 mg of acetaminophen in 24 hours. Active tamsulosin (FLOMAX) 0.4 Take one 90 capsule 3 mg capsule capsule by 2 mouth daily. Take 30 min after same meal. Do not cut/ crush/ chew. Active oxybutynin XL (DITROPAN Take one 15 tablet 0 XL) 10 mg tablet tablet by 2 mouth daily. Active oxyCODONE (ROXICODONE) 5 Take one 10 tablet 0 1 mg tablet tablet by 2 mouth every 4 hours as needed. 03/13/2023 Active potassium citrate Take one 270 tablet 3 03/13/20 2 (UROCIT-K 15) 15 mEq tablet by 2 tabletIndications: Kidney mouth three stone times daily. Take with food. Active Problems Problem Noted Date Nephrolithiasis 08/22/2021 ORTEGA (dyspnea on exertion) 01/31/2019 Bilateral lower extremity edema 01/31/2019 Essential hypertension 01/31/2019 Encounters Care Team Description Date Type Specialty Juan Ricardo MD Nephrolithiasis (Primary Dx) 03/20/2022 Office Visit Urology 03/20/2022 Travel Juan Ricardo MD Scheduling 03/07/2022 Telephone Urology 03/05/2022 Hospital Radiology Encounter from Last 3 Months Immunizations Name Administration Dates Next Due Flu Vaccine =>6 Months 02/01/2019 Quadrivalent PF Surgical History Surgery Date Site/Laterality Comments HX APPENDECTOMY 03/31/1989 - 03/30/1990 HX HEART CATHETERIZATION WISDOM TEETH EXTRACTION 03/31/1996 - 03/30/1997 HX KNEE SURGERY 03/31/2016 - Left 03/30/2017 COLONOSCOPY 03/31/2020 - 03/30/2021 CYSTOURETHROSCOPY 08/23/2021 Ureter/Left CYSTOURETHRO SCOPY WITH URETEROSCOPY AND PYELOSCOPY - WITH LITHOTRIPSY INCLUDING INSERTION URETERAL STENT performed by Juan Ricardo MD at [facility] [place] Medical devices from this surgery are i n the Medical Devices section. KIDNEY STONE SURGERY 01/10/2022 Left PERCUTANE OUS NEPHROSTOLITHOTOMY/ PYELOSTOLITHOTOMY - GREATER THAN 2 CM performed by Juan Ricardo MD at [facility] [place] Medical devices from this surgery are i n the Medical Devices section. NEPHROSTOMY 01/10/[address] ACEMENT NEPHROSTOMY CATHETER WITH NEPHROSTOGRAM/ URETEROGRAM/ IMAGE-EDU NCE performed by Juan Ricardo MD at [facility] [place] Medical devices from this surgery are i n the Medical Devices section. CYSTOURETHROSCOPY 01/10/2022 Left CYSTOURETHRO SCOPY WITH URETEROSCOPY AND/ OR PYELOSCOPY - WITH REMOVAL/ MANIPULATION CALCULUS performed by Juan Ricardo MD at [facility] [place] Medical devices from this surgery are i n the Medical Devices section. Medical History Medical History Date Comments Hypertension Arthritis Kidney stones Heart attack (HCC) 2012 no stents COPD (chronic obstructive pulmonary Restrictive fredy g dis disease) (HCC) TIMOTHY treated with BiPAP Slow to wake up after anesthesia Social History Date Tobacco Use Types Packs/Day Years Used Smoking Tobacco: Never Smokeless Tobacco: Never Comments Alcohol Use Standard Drinks/Week 1 x per year Yes 0 (1 standard drink = 0.6 o z pure alcohol) Sex Assigned at Date Recorded Male 07/25/2021 12:28 PM CDT Obstetrics History Last Filed Vital Signs Reading Time Taken Comments Vital Sign 131/74 03/20/2022 1:34 PM [employer]OR[employer] HEL[employer] Blood Pressure 91 03/20/2022 1:34 PM [employer] HEL[employer] Pulse 36.4 C (97.5 F) 03/20/2022 1:34 PM [employer]ORAIL HELPER Temperature - - Respiratory Rate 100% 03/20/2022 1:34 PM [employer]OR[employer] HELPER Oxygen Saturation - - Inhaled Oxygen Concentration 123.4 kg (272 lb) 03/20/2022 1:34 PM [employer]OR[employer] HEL[employer] Weight 177.8 cm (5' 10") 03/20/2022 1:34 PM [employer]ORAIL HEL[employer] Height 39.03 03/20/2022 1:34 PM [employer]ORAIL HELPER Body Mass Index Plan of Treatment Health Maintenance Due Date Last Done Comments HIV SCREENING 1986 HEPATITIS C SCREENING 1989 PHYSICAL (COMPREHENSIVE) 1989 EXAM COLORECTAL CANCER 01/29/2016 SCREENING COVID-19 VACCINE (3 - 12/19/2020 10/24/2020, Booster for Moderna 09/26/2020 series) SHINGLES RECOMBINANT 2021 VACCINE (1 of 2) INFLUENZA VACCINE (#1) 2021 02/01/2019 DEPRESSION SCREENING 03/31/2022 DTAP/TDAP VACCINES (2 - 03/19/2029 03/19/2019 Td or Tdap) Goals Goal Patient Associated Recent Progress Patient-Stat Aut hor Goal Type Problems ed? lose some weight and keep the General Yes Gayatri Newman, swelling down on my legs RN Medical Devices Device Identifier Shelf Expiration Date Model / Serial / L ot Explanted Type Area Manufactur er 05/21/2024 [id number] / NA / [id number] Stent Ureteral 6fr 26cm Pigtail Left: Ureter BOSTO N Curve Taper Tip Bladder Mark_D - SCIENTIFIC Sna UROLOGY Implanted: Qty: 1 on 08/23/2021 by Juan Ricardo MD at [facility] Explanted: Qty: 1 on 09/05/2021 by Juan Ricardo MD 10/18/2024 [id number] / N/A / [id number] Stent Ureteral 6fr 28cm Pigtail Left: Ureter BOSTO N Curve Taper Tip Bladder Malvin - Sn/A SCIENT[employer] Implanted: Qty: 1 on 01/10/2022 by UROLOGY Alex Estrada MD at [facility] Explanted: Qty: 1 on 01/16/2022 Procedures Comments Procedure Name Priority Date/Time Associated Diag nosis CT ABD/PEL EXTERNAL Routine 03/05/2022 IMAGING 12:00 AM MONORAIL HELPER from Last 3 Months Results * CT ABD/PEL EXTERNAL IMAGING (03/05/2022 12:00 AM MONORAIL HELPER) Anatomical Location / Laterality Collection Method / Volume Cinthia ection Time Received Time Specimen (Source) Narrative Scheduling, Silent - 03/21/2022 1:42 PM MONORAIL HELPER This order has been auto finalized and does not contain a result. Radiologist RADIOLOGY EXTERNAL ORDERABL ES Outpatient from Last 3 Months Insurance Type Payer Benefit Subscriber ID Effective Phone Address Plan / Dates Group [employer]VOR [employer]URRAY [id number] 2021-P [phone] [address] [place] [address] [phone] [facility] (Home) [place] [address] Advance Directives Patient Translation Director Explanation Type Date Recorded Advance 02/01/2019 Directive/DPOA Date Inactivated Comments Code Status Date Activated 01/11/2022 12:29 PM Full Code 01/10/2022 12:59 PM Provider has discussed Code Status No, discussion no t w/Patient or Family? necessary based on Dx 02/01/2019 7:06 PM Full Code 01/31/2019 5:50 PM Provider has discussed Code Status Yes w/Patient or Family? Care Teams Start Date End Date Yacht Master Relationship Specialty 01/31/19 Yang Ram MD PCP - General Family Medicine
--- OUTSIDE RECORDS SUMMARY | 2022-05-05 08:31 | XMS REPORT | Encounter Summary ---
Author Author [facility] Organization [facility] Address Unknown Phone Unavailable Care Team Providers Care Military Pilot Name Role Phone Yang Ram MD PCP Unavailable Reason for Visit * Reason Comments Kidney Stone Encounter Details Care Team Description Date Type Department Juan Ricardo MD [address] Orth[facility] [address] [place] [address] Nephrolithiasis (Primary Dx) 03/20/2022 Office Visit Urology: [facility] [address], [place] [address] Social History Date Tobacco Use Types Packs/Day Years Used Smoking Tobacco: Never Smokeless Tobacco: Never Comments Alcohol Use Standard Drinks/Week 1 x per year Yes 0 (1 standard drink = 0.6 o z pure alcohol) Sex Assigned at Date Recorded Male 07/25/2021 12:28 PM CDT Date Recorded COVID-19 Exposure Response 03/20/2022 1:23 PM INSTRUCTIONAL SUPERVISOR In the last 10 days, have you been in contact with N o / Unsure someone who was confirmed or suspected to have Coronavirus/COVID-19? documented as of this encounter Last Filed Vital Signs Reading Time Taken Comments Vital Sign 131/74 03/20/2022 1:34 PM INSTRUCTIONAL SUPERVISOR Blood Pressure 91 03/20/2022 1:34 PM INSTRUCTIONAL SUPERVISOR Pulse 36.4 C (97.5 F) 03/20/2022 1:34 PM INSTRUCTIONAL SUPERVISOR Temperature - - Respiratory Rate 100% 03/20/2022 1:34 PM INSTRUCTIONAL SUPERVISOR Oxygen Saturation - - Inhaled Oxygen Concentration 123.4 kg (272 lb) 03/20/2022 1:34 PM INSTRUCTIONAL SUPERVISOR Weight 177.8 cm (5' 10") 03/20/2022 1:34 PM INSTRUCTIONAL SUPERVISOR Height 39.03 03/20/2022 1:34 PM INSTRUCTIONAL SUPERVISOR Body Mass Index documented in this encounter Functional Status Date of Assessment Functional Status Response 01/31/2019 Does the patient have a hearing impairment: No documented as of this encounter Progress Notes * Juan Ricardo MD - 03/20/2022 1:30 PM CST ReSKU Follow-up Note Date: 03/20/2022 Subjective Shaq Guillaume was seen in the Urology faculty practice clinic at for a follow-up visit regarding their nephrolithiasis. As you know, he is a 52 y.o. m arturo with bilateral urolithiasis. These stones have been present for 1 year. He reports no symptomatic stone events since their last visit. These were associated with no symptoms. Since their last visit, the patient underwent no procedures for stones. At their last visit, the plan was for imaging. The patient was started on no new medications at their last visit. The patient reports no new stone medications were prescribed. no diet change was recommended at the patient's last visit. He did not have any new recommended diet changes from their last visit. Today patient is with symptoms.Pain on the lower back both more on the left than right side. Pt was prescribed 3 pills /day of Kcit 15 meqs The patient's past medical, surgical, medication, allergy, family, and social hi stories were reviewed and noncontributory to this illness/condition except as no jun below: The patient's past medical history is notable for: Medical History: Diagnosis Date Arthritis COPD (chronic obstructive pulmonary disease) (HCC) Restrictive lung dis Heart attack (HCC) 2012 no stents Hypertension Kidney stones TIMOTHY treated with BiPAP Slow to wake up after anesthesia The patient's past surgical history is notable for: Surgical History: Procedure Laterality Date HX APPENDECTOMY 1989 WISDOM TEETH EXTRACTION 1996 HX KNEE SURGERY Left 2017 COLONOSCOPY 2020 CYSTOURETHROSCOPY WITH URETEROSCOPY AND PYELOSCOPY - WITH LITHOTRIPSY INCLUD ING INSERTION URETERAL STENT Left 08/23/2021 Performed by Juan Ricardo MD at [facility] OR PERCUTANEOUS NEPHROSTOLITHOTOMY/ PYELOSTOLITHOTOMY - GREATER THAN 2 CM Left 01/10/2022 Performed by Juan Ricardo MD at [facility] OR PERCUTANEOUS PLACEMENT NEPHROSTOMY CATHETER WITH NEPHROSTOGRAM/ URETEROGRAM/ IMAGE-GUIDANCE Left 01/10/2022 Performed by Juan Ricardo MD at [facility] OR CYSTOURETHROSCOPY WITH URETEROSCOPY AND/ OR PYELOSCOPY - WITH REMOVAL/ MANIP ULATION CALCULUS Left 01/10/2022 Performed by Juan Ricardo MD at [facility] OR HX HEART CATHETERIZATION The patient's past family history is notable for: History reviewed. No pertinent family history. The patient's past social history is notable for: Social History Socioeconomic History Marital status: Tobacco Use Smoking status: Never Smokeless tobacco: Never Vaping Use Vaping Use: Never used Substance and Sexual Activity Alcohol use: Yes Comment: 1 x per year Drug use: Never Sexual activity: Yes Partners: Female Complete review of systems was performed and reviewed today. It is notable for: Review of Systems Constitutional: Negative for fever, chills, weight loss and malaise/fatigue. HENT: Negative for hearing loss, neck pain and tinnitus. Eyes: Negative for blurred vision, double vision and photophobia. Respiratory: Negative for cough, sputum production and wheezing. Cardiovascular: Negative for chest pain and palpitations. Gastrointestinal: Negative for heartburn, nausea, vomiting, abdominal pain, diar shin and constipation. Genitourinary: Negative for dysuria, urgency and frequency. Musculoskeletal: Negative for back pain and joint pain. Skin: Negative for itching and rash. Neurological: Negative for dizziness, tingling, focal weakness and headaches. Endo/Heme/Allergies: Does not bruise/bleed easily. Psychiatric/Behavioral: Negative for depression. The patient is not nervous/anxi ous. The patient is currently taking the following medications: Current Outpatient Medications Medication Sig Dispense Refill acetaminophen (ACETAMINOPHEN EXTRA STRENGTH) 500 mg tablet Take two tablets by mouth every 6 hours as needed for Pain. Max of 4,000 mg of acetaminophen in 2 4 hours. 50 tablet 0 lisinopril (ZESTRIL) 40 mg tablet Take one tablet by mouth daily. oxybutynin XL (DITROPAN XL) 10 mg tablet Take one tablet by mouth daily. 15 tablet 0 oxyCODONE (ROXICODONE) 5 mg tablet Take one tablet by mouth every 4 hours as needed. 10 tablet 0 potassium chloride (KLOR-CON 10) 10 mEq tablet Take 10 mEq by mouth daily. potassium citrate (UROCIT-K 15) 15 mEq tablet Take one tablet by mouth three times daily. Take with food. 270 tablet 3 tamsulosin (FLOMAX) 0.4 mg capsule Take one capsule by mouth daily. Take 30 min after same meal. Do not cut/ crush/ chew. 90 capsule 3 torsemide (DEMADEX) 20 mg tablet Take 1 tablet by mouth daily. No current facility-administered medications for this visit. The patient is allergic to: No Known Allergies Objective During the physical examination today, the patients vital signs were BP 131/74 (BP Source: Arm, Right Upper, Patient Position: Sitting) | Pulse 91 | Temp 36.4 C (97.5 F) (Temporal) | Ht 177.8 cm (5' 10") | Wt 123.4 kg (27 2 lb) | SpO2 100% | BMI 39.03 kg/m General: alert and oriented times three, pleasant, in no acute distress HEENT: Normocephalic, atraumatic Neck: normal range of motion Chest: breathing is unlabored Abdomen: soft, non-tender, non-distended Back: no costovertebral tenderness Extremities: no clubbing, cyanosis, or edema Psychiatric: mood and affect are normal, the patient is socially appropriate Neurologic: sensation is grossly intact in the upper and lower extremities Lab Review and Imaging The following imaging was personally reviewed and the findings were discussed wi th the patient by me:CT abd/pelvis. This demonstrated No Hydroureteronephrosis a nd Stones right Kidney. Stones measured 5-10 mm. Fatigue and Pain Assessment 03/20/2022 01/16/2022 09/05/2021 07/04/2021 Pain Score 3 3 0 8 Pain Loc - - - 4 Stone analysis from the patient's last stone was personally reviewed and results were discussed with the patient. This demonstrated: Uric Acid The following lab results were personally reviewed by me: Lab Results Component Value Date WBC 12.8 (H) 01/11/2022 HGB 12.8 (L) 01/11/2022 HCT 39.0 (L) 01/11/2022 MCV 84.3 01/11/2022 Lab Results Component Value Date CA 9.1 01/11/2022 Lab Results Component Value Date NA 139 01/11/2022 K 3.6 01/11/2022 CL 102 01/11/2022 CO2 26 01/11/2022 No results found for: CREATININE It was a pleasure seeing your patient in the Urology Faculty Practice clinic leobardo haider. I addressed urolithiasis with the patient today. Based on today's visit, we will plan for imaging and 24 hour urine collection}. Additional workup ordered today included rtc in may with 24 h urine and new US . Thank you for allowing us to participate in the care of this patient. Please do not hesitate to contact us should you have any questions or concerns. RUCTIONAL SUPERVISOR documented in this encounter Miscellaneous Notes * Patient Instructions - Juan Ricardo MD - 03/20/2022 1:30 PM INSTRUCTIONAL SUPERVISOR Department of Urology Dietary Management of Kidney Stones If you have had kidney stones before, you are more likely to have them again. To help prevent kidney stone formation, try to: Drink 6 to 8 glasses of water each day The single most important change for patients is the need to increase their herlinda y intake of fluids. Each patient should strive to produce 2 quarts of urine a da y. Depending on the heat outdoors, your level of physical activity you may need to increase your intake of fluid to ten, 10 ounce glasses of fluid every day. Wa ter is always the best choice, but other drinks are allowed as long as water is among the choices made. Eat less salt (sodium), meat and eggs Too much salt in your diet is bad for your blood pressure, heart and also increa ses the amount of calcium in your urine. Patients should target for sodium intak e of 2,000 to 2,200 mg a day, which is approximately the size of a teaspoon. High Protein diets from animal meat such as beef, chicken, port and fish can inc rease the rate of kidney stones forming, this is also unhealthy for your heart. Meat intake should be around 3 to 7 ounces per day. Maintain dietary calcium intake of 600 to 1,100 mg per day Food Sources of Calcium Gruyere Cheese 1 oz 287 mg Instant Oatmeal cup 163 mg Mozzarella Cheese 1 oz 207 mg 2% Cottage Cheese 1 cup 155 mg Cheddar Cheese 1 oz 204 mg Broccoli 1 stalk 150 mg Yogurt cup 200 mg Pizza 1 slice 150 mg Macaroni & Cheese cup 200 mg Milk cup 150 mg Homemade Waffle, 1 179 mg Buttermilk cup 150 mg Vanilla Ice Cream 1 Cup 176 mg Baked Custard cup 149 mg Ice Milk 1 cup 176 mg Pudding cup 146 mg Kazakh Cheese cup 174 mg Blackstrap Molasses 1 T 137 mg Ricotta Cheese cup 167 mg Instant Nonfat Dry Milk 2 T 105 mg DO NOT Limit your calcium intake unless directed by your physician. Calcium is b est in moderation and can be found in a variety of foods including but not limit ed to: small serving of yogurt, milk or ice cream. Maintaining the range of 600 to 1,000 mg per day helps avoid over absorption of oxalate (stone forming foods) from the digestive tract and allows for healthy bone maintenance. Oxalate foods in moderation Most patients who have a history of kidney stones should avoid heavy intake of r ich oxalate foods. These include green roughage, spinach, mustard, kale, strawbe rries, chocolate, tea and nuts. High intake levels of Vitamin C can also raise t he oxalate levels in your urine. It is recommended that patients who have oxalat e or calcium oxalate stones should have no more than 50 mg of oxalate per day in the diet. As a reminder, these foods are found mostly in foods that come from a plant. Foods High in Oxalate (More than 10 mg = cup serving) Beans (string or wax) Legume types (including baked beans canned in tomato sauce) Beets Blackberries Carob powder Celery Chocolate/cocoa, other chocolate drink mixes Dark leafy greens Spinach Romanian chard Beet greens Endive, escarole Parsley Draft beer Fruit cake Eggplant Gooseberries Grits (white corn) Instant coffee (more than 8/oz day) Leeks Nuts, nut butter Okra Peel: lemon, burns paiute, orange Raspberries (black) Red currants Rhubarb Soy products (tofu) Spinach Strawberries Summer squash Sweet potatoes Tea Wheat bran Wheat germ Increase insoluble fiber Fiber is the indigestible part of plants. There are two types of fiber: soluble and insoluble, Insoluble fiber is found in wheat, rye, barley, and rice. Insolub le fiber (that which does not dissolve in water) speeds up movement of substance s through the intestine, so there will be less time for calcium to be absorbed. Overall, it is important to increase fluid intake as the mainstay of stone preve ntion. RUCTIONAL SUPERVISOR documented in this encounter Plan of Treatment Not on filedocumented as of this encounter Goals Goal Patient Associated Recent Progress Patient-Stat Aut hor Goal Type Problems ed? lose some weight and keep the General Yes Gayatri Newman, swelling down on my legs RN documented as of this encounter Visit Diagnoses Diagnosis Nephrolithiasis - Primary Calculus of kidney documented in this encounter Discontinued Medications Start Date End Date Medication Sig Discontinue Reason 08/23/2021 03/20/2022 HYDROcodone/acetaminophen Take one Patient's (NORCO) 5/325 mg tablet tablet by Choice mouth every 6 hours as needed for Pain. 01/11/2022 03/20/[address] one Patient's (LEVSIN/SL) 0.125 mg tablet under Choice sublingual tablet tongue every 4 hours as needed for Cramps. Max 1.5 mg/ day 01/11/2022 03/20/2022 phenazopyridine Take one Patient's (PYRIDIUM) 200 mg tablet tablet by Choice mouth three times daily as needed for Pain. Take after meals for up to 2 days. 01/11/2022 03/20/2022 polyethylene glycol 3350 Take one Patient's (MIRALAX) 17 g packet packet by Choice mouth daily as needed (Constipatio n - Second Line). 01/11/2022 03/20/2022 senna/docusate Take one Patient's (SENOKOT-S) 8.6/50 mg tablet by Choice tablet mouth daily as needed (Constipatio n - First Line). 03/20/2022 spironolactone Take 25 mg Patient's (ALDACTONE) 25 mg tablet by mouth Choice daily. Take with food. documented as of this encounter Additional Health Concerns Noted Time Assessment 01/11/2022 8:15 AM CDT A fall risk assessment has been complet ed for the patient documented as of this encounter Care Teams Start Date End Date Military Pilot Relationship Specialty 01/31/19 Yang Ram MD PCP - General Family Medicine documented as of this encounter
--- OUTSIDE RECORDS SUMMARY | 2022-05-05 08:31 | XMS REPORT | Encounter Summary ---
Author Author [facility] Organization [facility] Address Unknown Phone Unavailable Care Team Providers Care Metal Welder Name Role Phone Yang Ram MD PCP Unavailable Encounter Details Care Team Description Date Type Department 03/20/2022 Travel Social History Date Tobacco Use Types Packs/Day Years Used Smoking Tobacco: Never Smokeless Tobacco: Never Comments Alcohol Use Standard Drinks/Week 1 x per year Yes 0 (1 standard drink = 0.6 o z pure alcohol) Sex Assigned at Date Recorded Male 07/25/2021 12:28 PM CDT Date Recorded COVID-19 Exposure Response 03/20/2022 1:23 PM CRITICAL CARE TECHNICIAN In the last 10 days, have you been in contact with N o / Unsure someone who was confirmed or suspected to have Coronavirus/COVID-19? documented as of this encounter Functional Status Date of Assessment Functional Status Response 01/31/2019 Does the patient have a hearing impairment: No documented as of this encounter Plan of Treatment Not on filedocumented as of this encounter Goals Goal Patient Associated Recent Progress Patient-Stat Aut hor Goal Type Problems ed? lose some weight and keep the General Yes Gayatri Newman, swelling down on my legs RN documented as of this encounter Visit Diagnoses Not on filedocumented in this encounter Additional Health Concerns Noted Time Assessment 01/11/2022 8:15 AM CDT A fall risk assessment has been complet ed for the patient documented as of this encounter Care Teams Start Date End Date Metal Welder Relationship Specialty 01/31/19 Yang Ram MD PCP - General Family Medicine documented as of this encounter
--- OUTSIDE RECORDS SUMMARY | 2022-05-05 08:31 | XMS REPORT | Clinical Summary ---
Author Author [facility] Organization [facility] Address Unknown Phone Unavailable Care Team Providers Care Clean Room Operator Name Role Phone Yang Ram MD PCP Allergies No known active allergies Medications End Date Status Medication Sig Dispensed Refills Start Date Active lisinopriL Take 1 tablet 0 (PRINIVIL,ZESTRIL) 40 MG by mouth 0 tablet daily. Active torsemide (DEMADEX) 20 MG Take 1 tablet 0 02/28 tablet by mouth 2 0 (two) times a day. Active spironolactone Take 1 tablet 0 (ALDACTONE) 25 MG tablet by mouth 0 daily. Active glimepiride (AMARYL) 1 MG Take 1 mg by 0 tablet mouth 2 (two) times a day. Active metformin (GLUCOPHAGE) Take 500 mg 0 500 mg tablet by mouth 2 (two) times a day with meals. Active potassium chloride Take 10 mEq 0 (KLOR-CON) 10 MEQ CR by mouth tablet daily. Active semaglutide (OZEMPIC) 1 Inject 0.75 6 each 3 mg/dose (2 mg/1.5 mL) mL (1 mg 1 syringeIndications: total) under Uncontrolled type 2 the skin diabetes mellitus with every 7 hyperglycemia (HCC) (seven) days. Active Bilevel Positive Airway nightly. 0 Pressure, BiPAP, Active Problems Problem Noted Date Hyperprolactinemia 04/06/2020 Uncontrolled type 2 diabetes mellitus with hyperglyce juanjo 04/06/2020 Essential hypertension 04/06/2020 Hypercholesterolemia 04/06/2020 Family History Medical History Relation Name Comments Cancer Father Heart failure Father Other Father malignant tumor of lung, prostate Cancer Mother Other Mother malignant tumor of stomach, malignant neoplasm of pharynx Relation Name Status Comments Father Mother Social History Date Tobacco Use Types Packs/Day Years Used Smoking Tobacco: Never Smokeless Tobacco: Never Comments Alcohol Use Standard Drinks/Week very rarely, maybe 0-1 every 2 years Yes 0 (1 standard drink = 0.6 o z pure alcohol) Sex Assigned at Date Recorded Not on file Last Filed Vital Signs Not on file Plan of Treatment Health Maintenance Due Date Last Done Comments Colonoscopy 1971 Colorectal Cancer 1971 Screening Diabetes Mellitus 1971 Ophthalmology Exam FIT-DNA 1971 Fecal Occult Blood or FIT 1971 Hepatitis C Screen 1971 Lipid Screening 1971 Sigmoidoscopy 1971 Td/Tdap# 1971 COVID-19 Vaccine (#1) 1971 Pneumococcal Vaccine: 1977 Pediatrics (0 to 5 Years) and At-Risk Patients (6 to 64 Years) (1 - PCV) Diabetes Mellitus 10/04/2020 04/06/2020 Hemoglobin A1C Zoster Vaccine# (1 of 2) 2021 Diabetes Mellitus Foot 04/06/2021 04/06/2020 Exam Influenza Vaccine (#1) 2021 02/01/2019 Social Determinants of 03/31/2022 Health# Results Not on filefrom 11/28/2021 to 03/30/2022 Insurance Type Payer Benefit Subscriber ID Effective Phone Address Plan / Dates Group [facility] OUT OF [id number] 2019-P [address] [facility] [id number] [place] [address] Shaq Guillaume Personal/F Self [address] [place] [address] Care Teams Start Date End Date Clean Room Operator Relationship Specialty 04/05/20 Yang Ram MD PCP - General [place] [address] [place] [address]
--- OUTSIDE RECORDS SUMMARY | 2022-05-05 08:31 | XMS REPORT | Encounter Summary ---
Author Author [facility] Organization [facility] Address Unknown Phone Unavailable Care Team Providers Care Box Repairer Name Role Phone Yang Ram MD PCP Unavailable Reason for Visit * Reason Onset Date Comments Scheduling 03/07/2022 Encounter Details Care Team Description Date Type Department Juan Ricardo MD [address] Orth[facility] [address] [place] [address] Scheduling 03/07/2022 Telephone Urology: [facility] [address] [place] [address] Social History Date Tobacco Use Types Packs/Day Years Used Smoking Tobacco: Never Smokeless Tobacco: Never Comments Alcohol Use Standard Drinks/Week 1 x per year Yes 0 (1 standard drink = 0.6 o z pure alcohol) Sex Assigned at Date Recorded Male 07/25/2021 12:28 PM CDT documented as of this encounter Functional Status Date of Assessment Functional Status Response 01/31/2019 Does the patient have a hearing impairment: No documented as of this encounter Miscellaneous Notes * Telephone Encounter - Naveed Lozano RN - 03/07/2022 9:49 AM CST Attempted to contact pt to see if he was doing any better and also to let him kn ow I had received records from his ED visit in [place]. Will scan into chart. Off ered to have him come for an office visit on 11:30 am. Provided phone n umber for him to call and confirm. NG MACHINE RECEIVER documented in this encounter Plan of Treatment [...] encounter Care Teams Start Date End Date Box Repairer Relationship Specialty 01/31/19 Yang Ram MD PCP - General Family Medicine documented as of this encounter
[2022-05-05 08:45] VITALS: BP 178/108
[2022-05-05] MEDS ORDERED: BISACODYL 10 MG SUPP (DULCOLAX) PR PRN (08:45)
[2022-05-05] MEDS ORDERED: ONDANSETRON 4 MG/2 ML (SDV) Z0FRAN IV PRN (08:45)
[2022-05-05] MEDS ORDERED: MILK OF MAGNESIA 400 MG/5 ML 30 ML UDC PO PRN (08:45)
[2022-05-05] MEDS ORDERED: ANTACID SUSP 30 ML UDC (MYLANTA) PO PRN (08:45)
[2022-05-05] MEDS ORDERED: LACTULOSE SYRUP 10GM/15ML (ENULOSE) 30ML UDC PO PRN (08:45)
[2022-05-05] MEDS ORDERED: NS IV 500 ML 500 ML IV PRN ×2 (08:45→12:30)
[2022-05-05] MEDS ORDERED: diphenhydrAMINE 25 MG TAB (BENADRYL) PO PRN (08:45)
[2022-05-05] MEDS ORDERED: ONDANSETRON 4 MG (ZOFRAN) ORAL DISSOLVE TAB PO PRN (08:45)
[2022-05-05] MEDS ORDERED: CALCIUM CARBONATE 500 MG (TUMS) TAB.CHEW PO PRN (08:45)
[2022-05-05] MEDS ORDERED: diphenhydrAMINE 50 MG/ML INJ (BENADRYL) IVP PRN (08:45)
[2022-05-05] MEDS ORDERED: polyethylene glycoL POWDER 17 GM (MIRALAX) PACK PO PRN (08:45)
[2022-05-05] MEDS ORDERED: MELATONIN 3 MG TABLET PO PRN (08:45)
[2022-05-05] MEDS ORDERED: methylPREDNISolone 125 MG (Solu-MEDROL) VIAL IVP ONE (09:00)
[2022-05-05] MEDS ORDERED: TORS20TA3 PO (09:40)
[2022-05-05] MEDS ORDERED: POTA15TA9 PO (09:40)
[2022-05-05] MEDS ORDERED: ASPI-999 PO (09:40)
[2022-05-05] MEDS ORDERED: TERB250T88 PO (09:40)
[2022-05-05] MEDS ORDERED: NAPR-915 PO (09:40)
[2022-05-05] MEDS ORDERED: TMSL.4C PO (09:40)
[2022-05-05] MEDS: SENNOSIDES 8.6 MG (SENOKOT) TAB PO SCH ×2 (09:47→21:05)
[2022-05-05] MEDS: DOCUSATE SODIUM 100 MG (COLACE) CAP PO SCH ×2 (09:47→21:05)
[2022-05-05] MEDS: ENOXAPARIN 40 MG/0.4 ML (LOVENOX) SYR SC SCH (09:50)
--- NOTE | 2022-05-05 09:53 | Diagnostic Imaging Report ---
INDICATION: Respiratory failure. COMPARISON: 10/12/2018. FINDINGS: The heart size, mediastinal configuration, and pulmonary vascularity are within normal limits. There is no pleural effusion, pneumothorax, or pneumonia. The osseous structures are unremarkable. IMPRESSION: No acute cardiopulmonary abnormality. Dictated by: Dictated on workstation # [id number]
[2022-05-05] MEDS ORDERED: FLU QUADRIvalent (6 months+) 60 mcg/0.5 ml 2022-23 (Fluzone) IM ONE (10:00)
--- NOTE | 2022-05-05 10:33 | Tele-ICU Progress Note ---
Subjective Date Seen by a Provider: May 05, 2022 Subjective/Events-last exam This virtual visit was conducted using real time audio/video. Thank you for asking us to see this patient for respiratory insufficiency and wheezing due to unknown etiology. Seen at [place] [facility] with wheezing and initial sat of 82%. CHF considered there but solumedrol, not diuretics given. CXR on arrival in [place] with clear chamberlain. NO toxic exposure. PMH: htn., CHF, TIMOTHY on CPAP, "restrictive" lung disease. NO history of asthma. SH: smoking history: never FH: Non-contributory ROS: as in HPI. PE: Appears comfortable. VSS. O2 sat 93% on BiPAP 14/6, 30%. HEENT: No obvious masses, adenopathy or JVD. Chest: wheezing bilat. CV: RRR S1 S2 No murmur or added sounds. Abd: Non-tender. Bowel sounds Y. : Unremarkable. Beth N. FIELD MARKETING LEAD/psychiatric: Grossly intact. No obvious focal findings. Extremities: No edema. Capillary refill < 3 seconds. Skin: unremarkable. Results: ABG: .7.42/34/73 on BiPAP CXR: unremarkable. D-Dimer normal. Available chart/ vitals / labs / images reviewed. Video assessment done using teleICU camera, rest of exam as per RN. A/P: Respiratory insufficiency: Continue present management with Bipap, duonebs, medrol. Monitor for increasing oxygenation needs and/or need for intubation. Critical Care: critically ill patient. Cont.lovenox. ECHO ordered to r/o systolic/diastolic dysfunctio. Discussed with RN Carmen. Asked RN to reach out to eICU if any questions or concerns later. Time spent with patient/coordination of care with other health professionals (mins): 30 Sepsis Event Evaluation Height, Weight, BMI Height: 5'11.00" Weight: 282lbs. 7.0oz. 127.629983yp; 38.00 BMI Method:Stated Exam Exam Patient acknowledged, consented, and participated in this virtual visit which wa s conducted using real time audio/video Vital Signs Date Time Temp Pulse Resp B/P (MAP) Pulse Ox O2 Delivery O2 Flow Rate FiO2 05/05/22 10:00 80 20 169/97 (118) 90 NIV Bilevel 30.00 05/05/22 09:19 96 05/05/22 09:10 NIV Bilevel 30.00 05/05/22 09:00 101 43 177/107 (125) 92 NIV Bilevel 30.00 05/05/22 08:45 98 27 98 30.00 05/05/22 08:30 97 25 178/108 (128) 97 NIV Bilevel 30.00 Height & Weight Height: 5'11.00" Weight: 282lbs. 7.0oz. 127.103191je; 38.00 BMI Method:Stated General Appearance: Mild Distress Respiratory: Wheezing Peripheral Pulses: 2+ Dorsalis Pedis (R), 2+ Left Dors-Pedis (L) Gastrointestinal: normal bowel sounds (See free text) Assessment/Plan Assessment/Plan See free text. Critical Care: Critically Ill Patient MARCIA OLIVERA MD May 05, 2022 10:32
[2022-05-05 14:40] VITALS: BP 134/91
[2022-05-05] MEDS ORDERED: RT-ALBUTEROL SULF 2.5 MG/3 ML PRE-MIX VIAL INH PRN (14:45)
[2022-05-05] MEDS: inSUlin ASPART (NovoLOG) 1 UNIT/0.01 ML (CHARGE PER UNIT) SQ SCH ×2 (16:04→21:02)
[2022-05-05] MEDS: RT-ALBUTEROL SULF 2.5 MG/3 ML PRE-MIX VIAL INH SCH ×2 (16:59→20:48)
--- NOTE | 2022-05-05 18:20 | History & Physical-Hospitalist ---
History of Present Illness HPI/Chief Complaint Shaq Guillaume is a 52 year old male with PMH HTN, CHF, BPH, TIMOTHY on CPAP, obesity, who presented with shortness of breath. He went to the [place] ER and was transferred to [facility] [address]. He says his symptoms started yesterday. He was short of breath. he did have a bit of a dry cough. He denies fevers and chills. He denies chest pain and palpitations. He denies abdominal pain, nausea, and vomiting. He reportedly has a history of restrictive lung disease. He was transferred to our ICU on BiPAP. Source: patient Exam Limitations: no limitations Date Seen 05/05/22 Time Seen by a Provider: 10:45 Attending Physician Wilbert Carias MD PCP Admitting Physician: Ibeth Garcia MD Attending Physician: Ibeth Garcia MD Referring Physician Date of Admission May 05, 2022 at 08:20 Home Medications & Allergies Home Medications Reviewed patient Home Medication Reconciliation performed by pharmacy medication reconciliations plasma center technician and/or nursing. Patients Allergies have been reviewed. Allergies Allergies Coded Allergies No Known Drug Allergies (Unverified05/23/14) Past Zstppny-Eiugyv-Klhokf Hx Patient Social History Tobacco Use?: No Substance use?: No Alcohol Use?: No Pt feels they are or have been: No Immunizations Up To Date First/Initial COVID19 Vaccinat: 09/26/20 Second COVID19 Vaccination Patrick: 10/24/20 Seasonal Allergies Seasonal Allergies: No Current Status Advance Directives: No Communicates: Verbally Primary Language: Bengali Preferred Spoken Language: Bengali Is interpretation needed?: No Implanted or Applied Medical D: CPAP Past Medical History Surgeries: Appendectomy, Orthopedic Sleep Apnea Currently Using CPAP: Yes Currently Using BIPAP: No Heart Attack, Hypertension Sexually Transmitted Disease: No HIV/AIDS: No Gastroesophageal Reflux Blood Disorders: No Adverse Reaction/Blood Tranf: No Family Medical History Congenital heart disease 19 FATHER FH: cancer 19 FATHER 19 MOTHER No Pertinent Family Hx Review of Systems Constitutional: no symptoms reported EENTM: no symptoms reported Respiratory: cough, short of breath Cardiovascular: no symptoms reported Gastrointestinal: no symptoms reported Physical Exam Physical Exam Vital Signs Vital Signs - First Documented 05/05/22 05/05/22 05/05/22 08:15 08:30 12:03 Temp 37.3 Pulse 97 Resp 25 B/P (MAP) 178/108 (128) Pulse Ox 94 O2 Delivery NIV Bilevel O2 Flow Rate 30.00 FiO2 30 Capillary Refill : Height, Weight, BMI Height: 5'11.00" Weight: 282lbs. 7.0oz. 127.878516yt; 38.93 BMI Method:Stated General Appearance: No Apparent Distress, Obese, Other (wearing BiPAP) HEENT: PERRL/EOMI Neck: Normal Inspection, Supple Respiratory: Lungs Clear, Normal Breath Sounds, No Respiratory Distress; No Crackles, No Wheezing Cardiovascular: Regular Rate, Rhythm, No Murmur Gastrointestinal: Normal Bowel Sounds, Non Tender, Soft Extremity: Normal Inspection; No Inflammation; Pedal Edema Skin: Normal Color, Warm/Dry Results Results/Procedures Labs Patient resulted labs reviewed. Imaging: Reviewed Imaging Report Assessment/Plan Admission Diagnosis Acute respiratory failure with hypoxia Admission Status: Inpatient Order (span 2 midnights) Reason for Inpatient Admission: Respiratory failure Assessment and Plan Acute respiratory failure with hypoxia Acute on chronic heart failure with preserved ejection fraction TIMOTHY on CPAP Transferred on BiPAP due to tachypnea Not septic Lab workup unrevealing Chest xray unremarkable Echo with normal EF, grade I diastolic dysfunction No history of asthma/COPD Wheezing reportedly improved with steroids and breathing treatments at [facility] protocol CT angio chest ordered to rule out PE TeleICU following Cardiology following Hyperglycemia Likely due to steroids Check A1C Sliding scale insulin HTN BPH Obesity Likely not taking home meds, med bottles at bedside filled last July DVT prophylaxis: Lovenox Critical Care Critically Ill Patient Diagnosis/Problems Diagnosis/Problems (1) Acute respiratory failure with hypoxia Status: Acute (2) Acute on chronic heart failure with preserved ejection fraction (HFpEF) Status: Acute (3) TIMOTHY on CPAP Status: Chronic (4) Obesity Status: Chronic (5) HTN (hypertension) Status: Chronic (6) BPH (benign prostatic hyperplasia) Status: Chronic IBETH GARCIA MD May 05, 2022 18:20
[2022-05-05] MEDS ORDERED: IOHEXOL 350 MG/ML 100 ML (OMNIPAQUE 350) VIAL IV ONE (19:45)
[2022-05-05] MEDS ORDERED: NS 100 ML (IVPB) BAG IV ONE (19:45)
[2022-05-05] MEDS: ACETAMINOPHEN 325 MG TABLET PO PRN (20:08)
--- NOTE | 2022-05-05 20:57 | Diagnostic Imaging Report ---
HISTORY: Hypoxia, respiratory distress. TECHNIQUE: Axial CT of the chest was performed following intravenous administration of contrast timed for pulmonary arteries, with sagittal and coronal MIP reformats. All CT scans use one or more of the following dose optimizing techniques: automated exposure control, MA and/or KvP adjustment based on patient size and exam type or iterative reconstruction. COMPARISON: Chest x-ray from 05/05/2022. FINDINGS: Pulmonary arteries are diagnostic to the segmental level. No filling defect is seen to indicate a pulmonary embolus. There is no evidence of right heart strain. The heart is normal in size. There is no pericardial effusion. There is no mediastinal adenopathy and no axillary adenopathy. The aorta is normal in caliber. There is dependent atelectasis in the lungs, bilaterally. No consolidation is seen elsewhere. There is no pleural effusion or pneumothorax. No central endobronchial lesions are seen. There are degenerative changes in the spine with flowing anterior osteophytes consistent with diffuse idiopathic skeletal hyperostosis. Imaged portions of the upper abdomen demonstrate no acute abnormality. There is bilateral gynecomastia. IMPRESSION: No pulmonary embolus. No acute pulmonary abnormality is identified. Dictated by: Dictated on workstation # [id number]
[2022-05-06 03:29] VITALS: BP 126/81
[2022-05-06] MEDS: RT-ALBUTEROL SULF 2.5 MG/3 ML PRE-MIX VIAL INH SCH ×4 (03:29→21:36)
[2022-05-06 04:47] LABS: BASOPHILS % (AUTO) 0 % (0-10); EOSINOPHILS % (AUTO) 0 % (0-10); HEMATOCRIT 40 % (40-54); HEMOGLOBIN 12.9 g/dL (13.3-17.7); LYMPHOCYTES # (AUTO) 1.1 10^3/uL (1.0-4.0); LYMPHOCYTES % (AUTO) 8 % (12-44); MEAN CORPUSCULAR HEMOGLOBIN 28 pg (25-34); MEAN CORPUSCULAR HGB CONC 33 g/dL (32-36); MEAN CORPUSCULAR VOLUME 86 fL (80-99); MEAN PLATELET VOLUME 9.7 fL (9.0-12.2); MONOCYTES # (AUTO) 1.1 10^3/uL (0.0-1.0); MONOCYTES % (AUTO) 7 % (0-12); NEUTROPHILS # (AUTO) 12.1 10^3/uL (1.8-7.8); NEUTROPHILS % (AUTO) 84 % (42-75); PLATELET COUNT 220 10^3/uL (130-400); WHITE BLOOD COUNT 14.4 10^3/uL (4.3-11.0)
[2022-05-06 05:06] LABS: CALCIUM 9.3 MG/DL (8.5-10.1); CREATININE SERUM 0.81 MG/DL (0.60-1.30); PHOSPHORUS 4.3 MG/DL (2.3-4.7); POTASSIUM 3.7 MMOL/L (3.6-5.0)
[2022-05-06] MEDS: KCL 20 MEQ TAB (K-DUR) PO SCH (05:11)
[2022-05-06] MEDS: POTASSIUM CL 10MEQ/50ML IVPB 50 ML IV SCH (05:11)
[2022-05-06] MEDS: MAGNESIUM 1 GM/100 ML IVPB 100 ML IV SCH (05:11)
[2022-05-06] MEDS: inSUlin ASPART (NovoLOG) 1 UNIT/0.01 ML (CHARGE PER UNIT) SQ SCH ×4 (05:12→20:17)
[2022-05-06] MEDS ORDERED: POTASSIUM CL 10MEQ/50ML IVPB 50 ML IV SCH (06:00)
[2022-05-06] MEDS ORDERED: MAGNESIUM 1 GM/100 ML IVPB 100 ML IV SCH (06:00)
[2022-05-06] MEDS ORDERED: KCL 20 MEQ TAB (K-DUR) PO SCH (06:00)
[2022-05-06 06:09] LABS: LYMPHOCYTES % (MANUAL) 9 %; MONOCYTES % (MANUAL) 9 %; NEUTROPHILS % (MANUAL) 82 %
[2022-05-06 06:10] LABS: RBC MORPH NORMAL
[2022-05-06] MEDS: DOCUSATE SODIUM 100 MG (COLACE) CAP PO SCH ×2 (09:24→19:59)
[2022-05-06] MEDS: SENNOSIDES 8.6 MG (SENOKOT) TAB PO SCH ×2 (09:25→19:59)
[2022-05-06] MEDS: ENOXAPARIN 40 MG/0.4 ML (LOVENOX) SYR SC SCH (09:25)
--- NOTE | 2022-05-06 09:35 | Tele-ICU Progress Note ---
Subjective Date Seen by a Provider: May 06, 2022 Time Seen by a Provider: 09:17 Subjective/Events-last exam today he is breathing better, has only minimal wheezing. off bipap, currently on 3l n/c Sepsis Event Evaluation Height, Weight, BMI Height: 5'11.00" Weight: 282lbs. 7.0oz. 127.883273tw; 38.93 BMI Method:Stated Exam Exam Patient acknowledged, consented, and participated in this virtual visit which was conducted using real time audio/video Vital Signs Date Time Temp Pulse Resp B/P (MAP) Pulse Ox O2 Delivery O2 Flow Rate FiO2 05/06/22 08:00 36.4 05/06/22 07:40 94 Nasal Cannula 3.00 05/06/22 07:15 68 05/06/22 07:00 64 16 126/78 (94) 95 NIV Bilevel 30.00 05/06/22 06:00 72 22 106/61 (78) 96 NIV Bilevel 30.00 05/06/22 05:15 36.5 05/06/22 05:00 70 17 107/69 (85) 96 NIV Bilevel 30.00 05/06/22 04:00 89 18 116/64 (79) 96 NIV Bilevel 30.00 05/06/22 04:00 95 Nasal Cannula 3.00 05/06/22 03:29 67 21 95 30.00 05/06/22 03:00 92 19 126/81 (99) 98 NIV Bilevel 30.00 05/06/22 02:00 84 17 109/85 (92) 94 NIV Bilevel 30.00 05/06/22 01:00 75 05/06/22 01:00 75 29 120/66 (90) 98 NIV Bilevel 30.00 05/06/22 00:00 77 20 107/59 (82) 95 NIV Bilevel 30.00 05/06/22 00:00 95 Nasal Cannula 3.00 05/05/22 23:52 37.0 05/05/22 23:00 NIV Bilevel 30 05/05/22 23:00 76 14 125/71 (84) 94 NIV Bilevel 30.00 05/05/22 22:00 95 Nasal Cannula 3.00 05/05/22 22:00 98 36 124/73 (90) 94 Nasal Cannula 3.00 05/05/22 21:00 108 18 95 Nasal Cannula 3.00 05/05/22 20:48 94 Nasal Cannula 2.00 05/05/22 20:00 98 34 144/78 (98) 96 Nasal Cannula 3.00 05/05/22 20:00 95 Nasal Cannula 3.00 05/05/22 19:42 37.2 05/05/22 19:00 96 05/05/22 19:00 96 28 144/83 (103) 96 Nasal Cannula 3.00 05/05/22 18:00 94 28 141/90 (101) 90 Nasal Cannula 3.00 05/05/22 17:12 Nasal Cannula 3.00 05/05/22 17:00 100 22 153/92 (107) 98 NIV Bilevel 30.00 05/05/22 17:00 Nasal Cannula 3.00 05/05/22 16:33 96 NIV Bilevel 30 05/05/22 16:00 97 23 140/85 (95) 94 NIV Bilevel 30.00 05/05/22 15:17 36.6 05/05/22 15:00 96 13 137/81 (91) 96 NIV Bilevel 30.00 05/05/22 14:40 37.0 93 93 32 05/05/22 14:00 93 20 134/91 (100) 92 NIV Bilevel 30.00 05/05/22 13:12 NIV Bilevel 30.00 05/05/22 13:00 93 23 138/87 (101) 93 Nasal Cannula 3.00 05/05/22 12:50 102 05/05/22 12:03 37.3 05/05/22 12:00 93 Nasal Cannula 3.00 05/05/22 12:00 102 14 154/108 (122) 91 Nasal Cannula 3.00 05/05/22 11:28 Nasal Cannula 3.00 05/05/22 11:00 93 18 162/101 (124) 93 NIV Bilevel 30.00 05/05/22 10:00 80 20 169/97 (118) 90 NIV Bilevel 30.00 05/05/22 09:19 96 I & O 05/06/22 07:00 Intake Total 1045 ml Output Total 2375 ml Balance -1330 ml Height & Weight Height: 5'11.00" Weight: 282lbs. 7.0oz. 127.027491ba; 38.93 BMI Method:Stated General Appearance: No Apparent Distress, Obese, Other (wearing BiPAP) HEENT: PERRL/EOMI Neck: Normal Inspection, Supple Respiratory: Lungs Clear, Normal Breath Sounds, No Respiratory Distress; No Crackles, No Wheezing Cardiovascular: Regular Rate, Rhythm, No Murmur Peripheral Pulses: 2+ Dorsalis Pedis (R), 2+ Left Dors-Pedis (L) Gastrointestinal: normal bowel sounds (See free text) Extremity: Normal Inspection; No Inflammation; Pedal Edema Skin: Normal Color, Warm/Dry Other comments PE PER RN Results Lab Laboratory Tests 05/06/22 03:53 Assessment/Plan Assessment/Plan 1. ACUTE RESPIRATORY FAILURE IMPROVED. CURRENTLY ON 3L N/C 2. HX OF TIMOTHY AND ON CPAP AT HOME. 3. HX OF CHF. CURRENTLY NO EVIDENCE OF DECOMPENSATION. PLAN. 1. CONTINUE BRONCHO DILATOR THERAPY. 2. WEIGHT REDUCTION ADVISED. 3. OK TO TRANSFER TO MEDICAL FLOOR FROM TELE ICU POINT OF VIEW Critical Care: Critically Ill Patient Time spent with patient (mins): 15 SAMI BOYD MD May 06, 2022 09:35
[2022-05-06] MEDS ORDERED: predniSONE 20 MG TAB PO NR (10:00)
[2022-05-06] MEDS: ACETAMINOPHEN 325 MG TABLET PO PRN ×2 (11:20→20:16)
[2022-05-06] MEDS ORDERED: ASPI-1238 PO (11:40)
--- NOTE | 2022-05-06 12:33 | Progress Note - Hospitalist ---
Subjective HPI/CC On Admission Date Seen by Provider: May 06, 2022 Shaq Guillaume is a 52 year old male with PMH HTN, CHF, BPH, TIMOTHY on CPAP, obesity, who presented with shortness of breath. He went to the [place] ER and was transferred to [facility] [address]. He says his symptoms started yesterday. He was short of breath. he did have a bit of a dry cough. He denies fevers and chills. He denies chest pain and palpitations. He denies abdominal pain, nausea, and vomiting. He reportedly has a history of restrictive lung disease. He was transferred to our ICU on BiPAP. Subjective/Events-last exam Pt reports feeling better today. breathing easier. Still wheezing though. Objective Exam Vital Signs Vital Signs Date Time Temp Pulse Resp B/P (MAP) Pulse Ox O2 Delivery O2 Flow Rate FiO2 05/06/22 12:30 95 Nasal Cannula 3.00 05/06/22 12:01 76 05/06/22 12:00 19 129/83 (98) 05/06/22 12:00 36.2 05/05/22 23:00 30 Capillary Refill : General Appearance: No Apparent Distress Respiratory: No Respiratory Distress, Wheezing Cardiovascular: Regular Rate, Rhythm, No Murmur Neurologic/Psychiatric: Alert, Oriented x3 Results/Procedures Lab Laboratory Tests 05/06/22 03:53 Patient resulted labs reviewed. Imaging: Reviewed Imaging Report Assessment/Plan Assessment and Plan Assess & Plan/Chief Complaint Acute respiratory failure with hypoxia Acute on chronic heart failure with preserved ejection fraction TIMOTHY on CPAP Restrictive lung disease Likely due to restrictive lung disease- improved with steroids and breathing treatments Echo with normal EF, grade I diastolic dysfunction MAT protocol CT angio chest ordered to rule out PE TeleICU following Cardiology following Add prednisone Wean oxygen as able Hyperglycemia Likely due to steroids A1C pending Sliding scale insulin HTN BPH Obesity Likely not taking home meds, med bottles at bedside filled last July BP well controlled currently, trend DVT prophylaxis: Lovenox Critical Care Critically Ill Patient ALEXA PALMER MD May 06, 2022 12:33
[2022-05-06 16:00] VITALS: BP 138/80
[2022-05-06 16:09] VITALS: BP 157/77
[2022-05-06 20:10] VITALS: BP 152/81
[2022-05-07 00:15] VITALS: BP 138/86
[2022-05-07] MEDS: RT-ALBUTEROL SULF 2.5 MG/3 ML PRE-MIX VIAL INH SCH ×2 (02:08→07:10)
[2022-05-07 04:42] VITALS: BP 135/74
[2022-05-07] MEDS: inSUlin ASPART (NovoLOG) 1 UNIT/0.01 ML (CHARGE PER UNIT) SQ SCH ×2 (05:36→13:07)
[2022-05-07 05:40] LABS: BASOPHILS % (AUTO) 0 % (0-10); EOSINOPHILS # (AUTO) 0.1 10^3/uL (0.0-0.3); EOSINOPHILS % (AUTO) 1 % (0-10); HEMATOCRIT 39 % (40-54); HEMOGLOBIN 12.6 g/dL (13.3-17.7); LYMPHOCYTES # (AUTO) 2.1 10^3/uL (1.0-4.0); LYMPHOCYTES % (AUTO) 19 % (12-44); MEAN CORPUSCULAR HEMOGLOBIN 28 pg (25-34); MEAN CORPUSCULAR HGB CONC 33 g/dL (32-36); MEAN CORPUSCULAR VOLUME 86 fL (80-99); MEAN PLATELET VOLUME 9.9 fL (9.0-12.2); MONOCYTES # (AUTO) 0.8 10^3/uL (0.0-1.0); MONOCYTES % (AUTO) 7 % (0-12); NEUTROPHILS # (AUTO) 8.1 10^3/uL (1.8-7.8); NEUTROPHILS % (AUTO) 72 % (42-75); PLATELET COUNT 237 10^3/uL (130-400); WHITE BLOOD COUNT 11.3 10^3/uL (4.3-11.0)
[2022-05-07 05:59] LABS: CALCIUM 8.9 MG/DL (8.5-10.1); CREATININE SERUM 0.77 MG/DL (0.60-1.30); MAGNESIUM 1.8 MG/DL (1.6-2.4); PHOSPHORUS 3.6 MG/DL (2.3-4.7); POTASSIUM 3.1 MMOL/L (3.6-5.0)
[2022-05-07] MEDS: POTASSIUM CL 10MEQ/50ML IVPB 50 ML IV SCH (06:35)
[2022-05-07] MEDS: MAGNESIUM 1 GM/100 ML IVPB 100 ML IV SCH (06:35)
[2022-05-07] MEDS: KCL 20 MEQ TAB (K-DUR) PO SCH (06:38)
[2022-05-07] MEDS ORDERED: predniSONE 20 MG TAB PO SCH (07:00)
[2022-05-07 07:08] VITALS: BP 152/89
[2022-05-07] MEDS ORDERED: KCL 20 MEQ TAB (K-DUR) PO NR ×2 (09:00→11:00)
[2022-05-07] MEDS: ENOXAPARIN 40 MG/0.4 ML (LOVENOX) SYR SC SCH (09:07)
[2022-05-07] MEDS: SENNOSIDES 8.6 MG (SENOKOT) TAB PO SCH (09:07)
[2022-05-07] MEDS: DOCUSATE SODIUM 100 MG (COLACE) CAP PO SCH (09:08)
[2022-05-07 11:44] VITALS: BP 155/81
[2022-05-07] MEDS ORDERED: ATOR40TA PO (13:28)
[2022-05-07] MEDS ORDERED: PRD20T PO (13:28)
[2022-05-07] MEDS ORDERED: RT-ALBUINH INH (13:28)
--- NOTE | 2022-05-07 13:29 | Discharge Inst-Simple/Standard ---
Discharge Inst-Standard Discharge Medications New, Converted or Re-Newed RX: Transmitted to Pharmacy Patient Instructions/Follow Up Plan of Care/Instructions/FU: Please continue to take your medications as written. Please follow up with your primary care doctor to follow up this hospital stay. Activity as Tolerated: Yes Discharge Diet: Cardiac Diet Return to The Hospital For: Chest pain, shortness of breath, fever, weakness, if you feel you are getting worse. ALEXA PALMER MD May 07, 2022 13:29
--- NOTE | 2022-05-07 13:31 | Discharge Summary ---
Diagnosis/Chief Complaint Date of Admission May 05, 2022 at 08:20 Date of Discharge Discharge Date: May 07, 2022 Admission Diagnosis Acute respiratory failure with hypoxia Primary Care Wilbert Carias MD Discharge Diagnosis (1) Acute respiratory failure with hypoxia Status: Acute (2) Acute on chronic heart failure with preserved ejection fraction (HFpEF) Status: Acute (3) TIMOTHY on CPAP Status: Chronic (4) Obesity Status: Chronic (5) HTN (hypertension) Status: Chronic (6) BPH (benign prostatic hyperplasia) Status: Chronic Discharge Summary Discharge Physical Exam Allergies: Coded Allergies: No Known Drug Allergies (Unverified , 05/23/14) Vitals & I&Os Vital Signs Date Time Temp Pulse Resp B/P (MAP) Pulse Ox O2 Delivery O2 Flow Rate FiO2 05/07/22 12:22 95 05/07/22 11:44 36.5 20 155/81 (105) 93 Room Air 0.00 0.00 05/05/22 23:00 30 Hospital Course Labs (last 24 hrs) Laboratory Tests 05/06/22 15:33: Glucometer 285H 05/06/22 20:09: Glucometer 307H 05/07/22 05:05: White Blood Count 11.3H, Red Blood Count 4.50, Hemoglobin 12.6L, Hematocrit 39L, Mean Corpuscular Volume 86, Mean Corpuscular Hemoglobin 28, Mean Corpuscular Hemoglobin Concent 33, Red Cell Distribution Width 14.7H, Platelet Count 237, Mean Platelet Volume 9.9, Immature Granulocyte % (Auto) 0, Neutrophils (%) (Auto) 72, Lymphocytes (%) (Auto) 19, Monocytes (%) (Auto) 7, Eosinophils (%) (Auto) 1, Basophils (%) (Auto) 0, Neutrophils # (Auto) 8.1H, Lymphocytes # (Auto) 2.1, Monocytes # (Auto) 0.8, Eosinophils # (Auto) 0.1, Basophils # (Auto) 0.0, Immature Granulocyte # (Auto) 0.0, Sodium Level 139, Potassium Level 3.1L, Chloride Level 105, Carbon Dioxide Level 22, Anion Gap 12, Blood Urea Nitrogen 18, Creatinine 0.77, Estimat Glomerular Filtration Rate 108, BUN/Creatinine Ratio 23, Glucose Level 127H, Calcium Level 8.9, Phosphorus Level 3.6, Magnesium Level 1.8, B-Type Natriuretic Peptide 14.4 05/07/22 05:29: Glucometer 133H 05/07/22 10:48: Glucometer 221H Microbiology 05/05/22 MRSA Screen - Final, Complete MRSA not isolated Patient resulted labs reviewed. Pending Labs Laboratory Tests 05/07/22 10:48: Glucometer 221 Imaging: Reviewed Imaging Report Discharge Home Medications: Active Scripts Active Lipitor (Atorvastatin Calcium) 40 Mg Tablet 40 Mg PO DAILY Ventolin Hfa (Albuterol Sulfate) 1 Puff Puff 2 Puff INH Q4H 1 PUFF = 90 MCG Prednisone 20 Mg Tab 40 Mg PO DAILY@0700 Reported Aspirin EC (Aspirin) 81 Mg Tablet.dr 81 Mg PO DAILY Flomax (Tamsulosin HCl) 0.4 Mg Cap 0.4 Mg PO DAILY LAST FILLED 08-23-2021 #90/90 DAY SUPPLY Naproxen 500 Mg Tablet 500 Mg PO BID PRN Potassium Chloride 10 Meq Tab.er.prt 10 Meq PO DAILY LAST FILLED 11-13-2021 #90/90 DAY SUPPLY Lisinopril 40 Mg Tablet 40 Mg PO DAILY LAST FILLED 08-23-2021 #90/90 DAY SUPPLY Instructions to patient/family Please see electronic discharge instructions given to patient. ALEXA PALMER MD May 07, 2022 13:31
[2022-05-07 13:55] VITALS: BP 155/81
--- NOTE | 2022-05-07 13:57 | Cardiology History & Physical ---
HPI-Cardiology Cardiology Consultation Date of Consultation 05/07/22 Date of Admission Time Seen by Provider: 13:00 [facility] 52-year-old male with a history of newly diagnosed diabetes, hypertension, obstructive sleep apnea on CPAP, BPH, diastolic dysfunction who presents for evaluation of respiratory distress. Patient reports that he has had shortness of breath for 1 to 2 days prior to admission. He also noted a dry cough but denied fevers chills nausea vomiting or abdominal discomfort. He also reported chest pressure but stated this was only in the setting of him having shortness of breath. Otherwise he denies chest discomfort. He does report a history of chronic edema and has been on torsemide furosemide or Aldactone or some combination thereof for the prior 3 years. Patient arrived to the emergency room was evaluated had a D-dimer which was 269. He had a CT of the chest which was negative for PE and did not demonstrate any consolidation in the lung parenchyma. Initial gas was 7.4 . Interestingly, when he was at the outside facility, he was told that he had a cardiac issue and needed to come to our facility for cardiac evaluation. In this scenario I am now consulting on this patient. PMH-Cardiology Immunizations Up To Date Tetanus Booster (DTap): More than 5yrs Seasonal Allergies Seasonal Allergies: No Surgeries Yes Respiratory No Cardiovascular Yes Neurological No Reproductive System Hx Reproductive Disorders: No Sexually Transmitted Disease: No HIV/AIDS: No Genitourinary No Gastrointestinal Yes Gastroesophageal Reflux Musculoskeletal No Endocrine No Cancer No Psychosocial No Integumentary No Blood Transfusions No Adverse Rxn to Transfusion: No Other PMHx Diabetes, recently diagnosed, now with an A1c of 6.9. Hypertension obstructive sleep apnea on CPAP BPH diastolic dysfunction chronic edema on torsemide Social History Patient Social History Marrital Status: (Tobacco use, denies. Illicit drug use, denies. Alcohol, rare.) Have you traveled recently?: No Alcohol Use?: No Family Hx Significant Family History: No Pertinent Family Hx Other Father with CHF at the age of 63. Patient denies CAD or CVA in the family. He notes that most of his family members of cancer. Family History: Congenital heart disease 19 FATHER FH: cancer 19 FATHER 19 MOTHER ROS-Cardiology Review of Systems All systems were reviewed and are negative except what is been described in [facility] Home Medications & Allergies Allergies: Coded Allergies: No Known Drug Allergies (Unverified , 05/23/14) Home medications include: Aspirin 81 mg p.o. daily Percocet Lisinopril 40 mg p.o. daily Naprosyn 500 mg p.o. twice daily as needed Flomax 0.4 mg p.o. daily Torsemide 20 mg p.o. q. OD. Exam-Cardiology Vital Signs Vital Signs Date Time Temp Pulse Resp B/P (MAP) Pulse Ox O2 Delivery O2 Flow Rate FiO2 05/07/22 12:22 95 05/07/22 11:44 36.5 20 155/81 (105) 93 Room Air 0.00 0.00 05/05/22 23:00 30 Exam General Appearance: Alert, Oriented X3 HEENT: Atraumatic Respiratory: Other (+ rhonci, and wheezing in bilateral lung chamberlain; poor air movement; no rales) Cardiovascular: Regular Rate, Normal S1, Normal S2, No Murmurs (no gallpos or rubs) Abdominal: Normal Bowel Sounds Extremities: No Clubbing, No Cyanosis, Other (trace edema in BLE.) Skin: No Rashes, No Significant Lesion Neuro: Normal Gait, Normal Speech Psych/Mental Status: Mental Status NL Results Labs Labs Laboratory Tests 05/06/22 15:33: Glucometer 285H 05/06/22 20:09: Glucometer 307H 05/07/22 05:05: White Blood Count 11.3H, Red Blood Count 4.50, Hemoglobin 12.6L, Hematocrit 39L, Mean Corpuscular Volume 86, Mean Corpuscular Hemoglobin 28, Mean Corpuscular Hemoglobin Concent 33, Red Cell Distribution Width 14.7H, Platelet Count 237, Mean Platelet Volume 9.9, Immature Granulocyte % (Auto) 0, Neutrophils (%) (Auto) 72, Lymphocytes (%) (Auto) 19, Monocytes (%) (Auto) 7, Eosinophils (%) ( Auto) 1, Basophils (%) (Auto) 0, Neutrophils # (Auto) 8.1H, Lymphocytes # (Auto) 2.1, Monocytes # (Auto) 0.8, Eosinophils # (Auto) 0.1, Basophils # (Auto) 0.0, Immature Granulocyte # (Auto) 0.0, Sodium Level 139, Potassium Level 3.1L, Chloride Level 105, Carbon Dioxide Level 22, Anion Gap 12, Blood Urea Nitrogen 18, Creatinine 0.77, Estimat Glomerular Filtration Rate 108, BUN/Creatinine Ratio 23, Glucose Level 127H, Calcium Level 8.9, Phosphorus Level 3.6, Magnesium Level 1.8, B-Type Natriuretic Peptide 14.4 05/07/22 05:29: Glucometer 133H 05/07/22 10:48: Glucometer 221H Microbiology 05/05/22 MRSA Screen - Final, Complete MRSA not isolated A/P-Cardiology Admission Diagnosis Admission Status: Other (not admitting; just consulting) Reason for Inpatient Admission: shortness of breath edema Assessment/Plan Mr. Shaq Guillaume is a 52-year-old gentleman with history of recently diagnosed diabetes with an A1c of 6.9, hypertension, obstructive sleep apnea on CPAP, BPH, diastolic dysfunction who presents for evaluation of shortness of breath found to have a COPD exacerbation. Cardiology is now consulted to aid in management First issue is shortness of breath: Patient was told that this presentation was consistent with heart failure. We have performed an echocardiogram which demonstrates an EF of 60 to 65%, grade 1 diastolic dysfunction, normal RV size and function, no significant valvular lesions. Additionally, his shortness of breath resolved with typical COPD type treatments and did not include much in the way of diuresis. At this point time I feel his presentation was most consistent with a COPD exacerbation. He does have diastolic dysfunction and I did discuss with him that this is a precursor for potential for diastolic heart failure. Given his risk factors which include hypertension and now diabetes, he should be on an ANJEL inhibitor and a statin. I recommended that he at least start atorvastatin. He is already on lisinopril. At this time, there is no indication that this presentation was secondary to any form of heart dysfunction. He does not need a lead generation specialist at this point time. Second issue is diabetes: Patient is to follow-up with his primary care physician to devise an appropriate antidiabetic regimen. He has been made aware of this. Should also continue on lisinopril and statin as noted above. SUKHJINDER SANON MD May 07, 2022 1:57 pm
== END 2022-05-07 13:55 | disposition home or self-care (01) | DRG 291 ==
LOC: ICU 08:20 → 4TH 05-06 15:39
PROVIDERS: ADMIT Internal Medicine; ATTEND Internal Medicine
PROC: 5A09357 Assistance with Respiratory Ventilation, Less than 24 Consecutive Hours, Continuous Positive Airway Pressure (ICD-10-PCS; principal; 2022-05-05)
DX: I11.0 Hypertensive heart disease with heart failure (principal); I50.33 Acute on chronic diastolic (congestive) heart failure; J96.01 Acute respiratory failure with hypoxia; J98.4 Other disorders of lung; J44.9 Chronic obstructive pulmonary disease, unspecified; E11.65 Type 2 diabetes mellitus with hyperglycemia; G47.33 Obstructive sleep apnea (adult) (pediatric); N40.0 Benign prostatic hyperplasia without lower urinary tract symptoms; E66.9 Obesity, unspecified; Z68.38 Body mass index [BMI] 38.0-38.9, adult; K21.9 Gastro-esophageal reflux disease without esophagitis; I25.2 Old myocardial infarction; Z79.52 Long term (current) use of systemic steroids; Z79.82 Long term (current) use of aspirin; Z79.1 Long term (current) use of non-steroidal anti-inflammatories (NSAID); Z79.899 Other long term (current) drug therapy; Z23 Encounter for immunization
CPT/HCPCS: 36415; 71045; 71275; 80048; 82947; 83036; 83735; 83880; 84100; 84484; 85007; 85025; 85027; 87081; 90686; 93306; 94640; 94660

== ENCOUNTER 2022-06-01 17:58 | Emergency (ER) | payer OTHER ==
[~2022-06-01] VITALS: Ht 177.8 cm; Wt 121.5 kg
[~2022-06-01 17:58] MED LIST changes: +ASPI-1238 PO; +ASPI-999 PO; +ATOR40TA PO; +NAPR-915 PO; +POTA15TA9 PO; +PRD20T PO; +RT-ALBUINH INH; +TERB250T88 PO; +TMSL.4C PO; +TORS20TA3 PO
[2022-06-01 18:29] LABS: BILIRUBIN,URINE NEGATIVE (NEGATIVE); CLARITY,URINE SL CLOUDY; COLOR,URINE ORANGE; GLUCOSE, URINE (UA) 2+ (NEGATIVE); KETONES,URINE NEGATIVE (NEGATIVE); LEUKOCYTE ESTERASE ,URINE NEGATIVE (NEGATIVE); NITRITE,URINE POSITIVE (NEGATIVE); PH,URINE 5.5 (5-9); PROTEIN,URINE 2+ (NEGATIVE)
[2022-06-01 18:29] LABS: BASOPHILS # (AUTO) 0.1 10^3/uL (0.0-0.1); BASOPHILS % (AUTO) 1 % (0-10); EOSINOPHILS # (AUTO) 0.5 10^3/uL (0.0-0.3); EOSINOPHILS % (AUTO) 5 % (0-10); HEMATOCRIT 41 % (40-54); HEMOGLOBIN 13.5 g/dL (13.3-17.7); LYMPHOCYTES # (AUTO) 1.8 10^3/uL (1.0-4.0); LYMPHOCYTES % (AUTO) 20 % (12-44); MEAN CORPUSCULAR HEMOGLOBIN 28 pg (25-34); MEAN CORPUSCULAR HGB CONC 33 g/dL (32-36); MEAN CORPUSCULAR VOLUME 86 fL (80-99); MEAN PLATELET VOLUME 9.5 fL (9.0-12.2); MONOCYTES # (AUTO) 0.6 10^3/uL (0.0-1.0); MONOCYTES % (AUTO) 6 % (0-12); NEUTROPHILS # (AUTO) 6.3 10^3/uL (1.8-7.8); NEUTROPHILS % (AUTO) 68 % (42-75); PLATELET COUNT 218 10^3/uL (130-400); WHITE BLOOD COUNT 9.3 10^3/uL (4.3-11.0)
[2022-06-01] MEDS ORDERED: LACTATED RINGERS 1,000 ML IV ONE (18:30)
[2022-06-01 18:33] LABS: ALBUMIN 3.9 GM/DL (3.2-4.5); POTASSIUM 3.5 MMOL/L (3.6-5.0)
[2022-06-01 18:35] LABS: CALCIUM 9.2 MG/DL (8.5-10.1)
[2022-06-01 18:36] LABS: TOTAL PROTEIN 7.4 GM/DL (6.4-8.2)
[2022-06-01 18:38] LABS: BILIRUBIN,TOTAL 0.4 MG/DL (0.1-1.0)
[2022-06-01 18:39] LABS: CREATININE SERUM 0.9 MG/DL (0.60-1.30)
[2022-06-01 18:41] LABS: RBC,URINE >100 /HPF
[2022-06-01 18:42] LABS: BACTERIA,URINE TRACE /HPF; SQUAMOUS EPITHELIAL CELL,UR 0-2 /HPF; WBC,URINE RARE /HPF
[2022-06-01] MEDS ORDERED: KETOROLAC 30 MG/ML VIAL IVP ONE (18:45)
[2022-06-01] MEDS ORDERED: cefTRIAXone 1 GM PRE-MIX 50 ML IV ONE (18:45)
[2022-06-01] MEDS ORDERED: ONDANSETRON 4 MG/2 ML (SDV) Z0FRAN IVP ONE (18:45)
--- NOTE | 2022-06-01 19:24 | Diagnostic Imaging Report ---
INDICATION: Left flank pain. FINDINGS: There is a mildly elevated fecal load and mild degree of constipation could not be excluded but no tone impaction or obstruction. No radiographically apparent organomegaly or mass effect and no suspicious calcifications. Some chronic degenerative changes and enthesopathy about the bony pelvis, stable. IMPRESSION: Similar constipation pattern. No overt obstruction. No acute appearing abnormality. Dictated by: Dictated on workstation # [id number]
--- NOTE | 2022-06-01 19:52 | Diagnostic Imaging Report ---
PROCEDURE: CT urinary tract, rule out kidney stone. TECHNIQUE: Multiple contiguous axial images were obtained through the abdomen and pelvis without the use of intravenous contrast. Auto Exposure Controls were utilized during the CT exam to meet ALARA standards for radiation dose reduction. INDICATION: Left flank pain and hematuria. COMPARISON: Abdominopelvic CT performed 10/12/2018. FINDINGS: An 8 mm x 4 mm elongated calculus in the left renal pelvis is present. There may be some adjacent urothelial thickening but no resultant hydronephrosis. Elongated calculus within the right renal upper pole calyx, nonobstructing, 11 mm x 6 mm. Remaining bilateral ureters normal. No stone within the bladder lumen. No perivesical edema. No perinephric or periureteric stranding. No fluid collection. The gallbladder contracted. No visible stone. No bile duct dilatation. Spleen, adrenals and pancreas are all nonacute. The aorta is nonaneurysmal. There is no appendicitis or diverticulitis. No ascites, abscess hematoma or acute fluid collection. IMPRESSION: 1. Bilateral renal calculi, nonobstructing. Aside from the left renal pelvic stone, no ureteral or bladder calculus and no focal inflammatory change. 2. Nonspecific posterior sulcal left basilar partial atelectasis. Dictated by: Dictated on workstation # [id number]
[2022-06-01] MEDS ORDERED: morphine INJ 10 MG/ML 1ML (SYR OR VIAL) IVP STA (20:58)
[2022-06-01] MEDS ORDERED: RX-ONDANSETRON 4 MG ODT (ZOFRAN) PPK #4 PO STA (20:59)
[2022-06-01] MEDS ORDERED: ONDA8TAB13 PO (21:02)
[2022-06-01] MEDS ORDERED: HYDR-34 PO (21:02)
[2022-06-01] MEDS ORDERED: CEFD300C3 PO (21:02)
--- NOTE | 2022-06-01 21:03 | ED GU-Male ---
General Chief Complaint: - Reproductive Stated Complaint: SIDE/BACK PAIN, BLOOD IN URINE Nursing Triage Note: PT AMB TO RM 8 WITH COMPLAINT OF LEFT FLANK PAIN AND BLOOD IN URINE. STATES STARTED 3 DAYS AGO. [facility] HE HAD KIDNEY STONES LASERED ON LEFT SIDE IN DECEMBER 2021. [facility] SEES A UROLOGIST AT AND HAS APPT ON May. [facility] HE HAS HAD THIS PAIN BEFORE, BUT NOT WITH THE BLOOD IN URINE. Source: patient Allergies and Home Medications Allergies Coded Allergies: No Known Drug Allergies (Unverified , 05/23/14) Patient Home Medication List Albuterol Sulfate (Ventolin Hfa) 1 Puff Puff, 2 PUFF INH Q4H Prescribed by: ALEXA PALMER on 05/07/22 1328 Aspirin (Aspirin EC) 81 Mg Tablet.dr, 81 MG PO DAILY, (Reported) Entered as Reported by: MARCO A GREGORY on 05/06/22 1140 Atorvastatin Calcium (Lipitor) 40 Mg Tablet, 40 MG PO DAILY Prescribed by: ALEXA PALMER on 05/07/22 1328 Lisinopril (Lisinopril) 40 Mg Tablet, 40 MG PO DAILY, (Reported) Entered as Reported by: CLEMENTE CARLOS on 06/05/21 1210 Naproxen (Naproxen) 500 Mg Tablet, 500 MG PO BID PRN for PAIN-MILD (1-4), (Reported) Entered as Reported by: KAUR CONDE on 05/05/22 0940 Potassium Chloride (Potassium Chloride) 10 Meq Tab.er.prt, 10 MEQ PO DAILY, (Reported) Entered as Reported by: CLEMENTE CARLOS on 06/05/21 1210 Prednisone (Prednisone) 20 Mg Tab, 40 MG PO DAILY@0700 Prescribed by: ALEXA PALMER on 05/07/22 1328 Past Eqemlvm-Itnyag-[id number] Hx Patient Social History Tobacco Use?: No Use of E-Cig and/or Vaping dev: No Substance use?: No Alcohol Use?: No Pt feels they are or have been: No Immunizations Up To Date Tetanus Booster (TDap): More than 5yrs First/Initial COVID19 Vaccinat: 09/26/20 Second COVID19 Vaccination Patrick: 10/24/20 Third COVID19 Vaccination Date: 09/26/20 Seasonal Allergies Seasonal Allergies: No Past Medical History Surgery/Hospitalization HX: APPENDECTOMY, LT KIDNEY STONE SURGERY AT Surgeries: Yes Appendectomy, Orthopedic Respiratory: No Sleep Apnea Currently Using CPAP: Yes Currently Using BIPAP: No Cardiac: Yes Heart Attack, Hypertension Neurological: No Reproductive Disorders: No Sexually Transmitted Disease: No HIV/AIDS: No Genitourinary: No Gastrointestinal: Yes Gastroesophageal Reflux Musculoskeletal: No Endocrine: No Cancer: No Psychosocial: No Integumentary: No Blood Disorders: No Adverse Reaction/Blood Tranf: No Family Medical History Congenital heart disease 19 FATHER FH: cancer 19 FATHER 19 MOTHER No Pertinent Family Hx Physical Exam Vital Signs Vital Signs - First Documented 06/01/22 18:11 Temp 36.4 Pulse 80 Resp 16 B/P (MAP) 147/89 (108) Pulse Ox 97 O2 Delivery Room Air Capillary Refill : Less Than 3 Seconds Height, Weight, BMI Height: 5'11.00" Weight: 282lbs. 7.0oz. [id number]; 38.00 BMI Method:Stated Progress/Results/Core Measures Suspected Sepsis SIRS Temperature: Pulse: 80 Respiratory Rate: 16 Laboratory Tests 06/01/22 18:16: White Blood Count 9.3 Blood Pressure 147 /89 Mean: 108 Laboratory Tests 06/01/22 18:16: Creatinine 0.90, Platelet Count 218, Total Bilirubin 0.4 Results/Orders Lab Results Laboratory Tests Test 06/01/22 18:16 06/01/22 18:23 Range/Units White Blood Count 9.3 4.3-11.0 10^3/uL Red Blood Count 4.83 4.30-5.52 10^6/uL Hemoglobin 13.5 13.3-17.7 g/dL Hematocrit 41 40-54 % Mean Corpuscular Volume 86 80-99 fL Mean Corpuscular Hemoglobin 28 25-34 pg Mean Corpuscular Hemoglobin Concent 33 32-36 g/dL Red Cell Distribution Width 13.9 10.0-14.5 % Platelet Count 218 130-400 10^3/uL Mean Platelet Volume 9.5 9.0-12.2 fL Immature Granulocyte % (Auto) 0 % Neutrophils (%) (Auto) 68 42-75 % Lymphocytes (%) (Auto) 20 12-44 % Monocytes (%) (Auto) 6 0-12 % Eosinophils (%) (Auto) 5 0-10 % Basophils (%) (Auto) 1 0-10 % Neutrophils # (Auto) 6.3 1.8-7.8 10^3/uL Lymphocytes # (Auto) 1.8 1.0-4.0 10^3/uL Monocytes # (Auto) 0.6 0.0-1.0 10^3/uL Eosinophils # (Auto) 0.5 H 0.0-0.3 10^3/uL Basophils # (Auto) 0.1 0.0-0.1 10^3/uL Immature Granulocyte # (Auto) 0.0 0.0-0.1 10^3/uL Sodium Level 139 135-145 MMOL/L Potassium Level 3.5 L 3.6-5.0 MMOL/L Chloride Level 104 98-107 MMOL/L Carbon Dioxide Level 24 21-32 MMOL/L Anion Gap 11 5-14 MMOL/L Blood Urea Nitrogen 15 7-18 MG/DL Creatinine 0.90 0.60-1.30 MG/DL Estimat Glomerular Filtration Rate 103 BUN/Creatinine Ratio 17 Glucose Level 166 H 70-105 MG/DL Calcium Level 9.2 8.5-10.1 MG/DL Corrected Calcium 9.3 8.5-10.1 MG/DL Total Bilirubin 0.4 0.1-1.0 MG/DL Aspartate Amino Transf (AST/SGOT) 16 5-34 U/L Alanine Aminotransferase (ALT/SGPT) 21 0-55 U/L Alkaline Phosphatase 82 40-136 U/L Total Protein 7.4 6.4-8.2 GM/DL Albumin 3.9 3.2-4.5 GM/DL Urine Color ORANGE Urine Clarity SL CLOUDY Urine pH 5.5 5-9 Urine Specific [place] >=1.030 1.016-1.022 Urine Protein 2+ H NEGATIVE Urine Glucose (UA) 2+ H NEGATIVE Urine Ketones NEGATIVE NEGATIVE Urine Nitrite POSITIVE H NEGATIVE Urine Bilirubin NEGATIVE NEGATIVE Urine Urobilinogen 1.0 < = 1.0 MG/DL Urine Leukocyte Esterase NEGATIVE NEGATIVE Urine RBC (Auto) 3+ H NEGATIVE Urine RBC >100 H /HPF Urine WBC RARE /HPF Urine Squamous Epithelial Cells 0-2 /HPF Urine Crystals NONE /LPF Urine Bacteria TRACE /HPF Urine Casts NONE /LPF Urine Mucus SMALL H /LPF Urine Culture Indicated YES My Orders Orders - SOFYA RONDON DO Ed Iv/Invasive Line Start (06/01/22 18:23) Ct Abd/Pelvis Wo(Kidney Stone) (06/01/22 18:23) Abdomen/Kub 1view (06/01/22 18:23) Cbc With Automated Diff (06/01/22 18:23) Comprehensive Metabolic Panel (06/01/22 18:23) Ed Iv/Invasive Line Start (06/01/22 18:23) Lactated Ringers (Lr 1000 Ml Iv Solution (06/01/22 18:30) Ketorolac Injection (Toradol Injection) (06/01/22 18:45) Ondansetron Injection (Zofran Injectio (06/01/22 18:45) Ceftriaxone 1 Gm Pre-Mix (Rocephin 1 Gm (06/01/22 18:45) Morphine Injection (Morphine Injection (06/01/22 20:58) Medications Given in ED Current Medications Medications Dose Ordered Sig/Karen Route Start Time Stop Time Status Last Admin Dose Admin Ceftriaxone Sodium/Dextrose 50 ml @ 100 mls/hr ONCE ONCE IV 06/01/22 18:45 06/01/22 19:14 DC 06/01/22 19:40 100 MLS/HR Ketorolac Tromethamine 30 mg ONCE ONCE IVP 06/01/22 18:45 06/01/22 18:46 DC 06/01/22 18:45 30 MG Lactated Ringer's 1,000 ml @ 0 mls/hr Q0M ONCE IV 06/01/22 18:30 06/01/22 18:31 DC 06/01/22 18:45 0 MLS/HR Ondansetron HCl 4 mg ONCE ONCE IVP 06/01/22 18:45 06/01/22 18:46 DC 06/01/22 18:45 4 MG Vital Signs/I&O 06/01/22 18:11 Temp 36.4 Pulse 80 Resp 16 B/P (MAP) 147/89 (108) Pulse Ox 97 O2 Delivery Room Air Capillary Refill : Less Than 3 Seconds Blood Pressure Mean: 108 Departure Impression Primary Impression: Renal lithiasis Additional Impression: UTI (urinary tract infection) Disposition: 01 HOME, SELF-CARE Condition: Stable Departure-Patient Inst. Decision time for Depature: 21:00 Referrals: LANCE PARR MD (PCP/Family) Primary Care Physician Patient Instructions: Kidney Stone, Adult ED, Urinary Tract Infection, Adult ED Add. Discharge Instructions: LOTS OF CLEAR LIQUIDS FOLLOW UP WITH YOUR NEW UROLOGIST SCHEDULED CONTINUE YOUR REGULAR MEDICATIONS PRESCRIBED RETURN TO ER IF SYMPTOMS WORSEN All discharge instructions reviewed with patient and/or family. Voiced understanding. Scripts Hydrocodone Bit/Acetaminophen (HYDROcodone/APAP 7.5/325 TAB) 1 Ea Tablet 1 EA PO Q4-6 PRN for PAIN, #20 TAB Prov: SOFYA RONDON DO 06/01/22 Ondansetron (Ondansetron Odt) 8 Mg Tab.rapdis 8 MG PO Q6H, #10 TAB Prov: SOFYA RONDON DO 06/01/22 Cefdinir (Cefdinir) 300 Mg Capsule 300 MG PO BID, #20 CAP Prov: SOFYA RONODN DO 06/01/22 SOFYA RONDON DO Jun 01, 2022 21:03
[2022-06-01 21:36] VITALS: BP 144/88
== END 2022-06-01 21:36 | disposition home or self-care (01) ==
LOC: EDUNIT# 17:58 → ER 18:00
DX: N20.0 Calculus of kidney (principal); N39.0 Urinary tract infection, site not specified; G47.30 Sleep apnea, unspecified; Z90.49 Acquired absence of other specified parts of digestive tract; Z99.89 Dependence on other enabling machines and devices
CPT/HCPCS: 36415; 74018; 74176; 80053; 81000; 85025; 87088